=== PATIENT | female | born 1940 | race Caucasian/White ===

== ENCOUNTER 2016-11-24 09:22 | Emergency (ER) | payer OTHER, MEDICARE ==
[2016-11-24 09:31] VITALS: BP 149/75; PULSE 81; TEMP 98.3; BMI 23.0
--- NOTE | 2016-11-24 09:46 | PDOC ---
History of Present Illness <Kelli Thompson - Last Filed: 11/24/16 15:32> - General History Source: Patient Exam Limitations: No Limitations - History of Present Illness Initial Comments: 11/24/16 10:43 The patient is a 76 year old female presenting with her fellow sister, with a significant past medical history of HTN, HLD and diabetes, who presents to the emergency department with lightheadedness and elevated blood sugar. She notes that she ran out of her Levemir medication and attempted to get in contact with her PMD, who are closed due to the holidays. She states that her blood sugar levels have been up and down prior to running out of her Levemir medication. The patient denies chest pain, shortness of breath, headache and dizziness. Denies fever, chills, nausea, vomit, diarrhea and constipation. Denies dysuria, frequency, urgency and hematuria. Allergies: None Past surgical history: L. Foot, L. Knee replaced, growth removed from brain in 1994 Social history: No Alcohol, tobacco or drug use reported <George Yang - Last Filed: 11/24/16 15:50> - General Chief Complaint: Lightheaded Stated Complaint: LIGHTHEADED, HIGH SUGAR Time Seen by Provider: 11/24/16 09:38 Past History - Past Medical History Anemia: No Asthma: No Cancer: No Cardiac Disorders: No CVA: No COPD: No CHF: No Dementia: No Diabetes: Yes GI Disorders: Yes (BLOOD IN STOOL) Disorders: No HTN: Yes Hypercholesterolemia: Yes Liver Disease: No Suicide Attempt (Hx): No Seizures: No Thyroid Disease: Yes - Surgical History Abdominal Surgery: No Appendectomy: No Cardiac Surgery: No Cholecystectomy: No Neurologic Surgery: Yes (GROWTH REMOVED FROM BRAIN 1994) Orthopedic Surgery: Yes (L. Foot, L. Knee replaced) - Psycho/Social/Smoking Cessation Hx Anxiety: No Suicidal Ideation: No Smoking Status: No Smoking History: Never smoked Have you smoked in the past 12 months: No Number of Cigarettes Smoked Daily: 0 Information on smoking cessation initiated: No Hx Alcohol Use: No Drug/Substance Use Hx: No Substance Use Type: None Hx Substance Use Treatment: No <Kelli Thompson - Last Filed: 11/24/16 15:32> <George Yang - Last Filed: 11/24/16 15:50> - Past Medical History Allergies/Adverse Reactions: Allergies Allergy/AdvReac Type Severity Reaction Status Date / Time No Known Allergies Allergy Verified 11/24/16 09:31 Home Medications: Ambulatory Orders Metformin HCl [Glucophage] 1,000 mg PO DAILY 05/22/13 Pravastatin Sodium [Pravachol -] 80 mg PO HS 05/22/13 Aspirin [ASA -] 81 mg PO DAILY #0 tab.chew 05/27/13 Levothyroxine [Synthroid -] 112 mcg PO DAILY@0700 #0 tablet 05/27/13 Multivitamins [Multivit ([facility] Formul[facility])] 1 udtab PO DAILY #0 tab 05/27/13 Glimepiride [Amaryl] 2 mg PO BID 08/09/13 Insulin Aspart [Novolog] 6 unit SQ BID 08/09/13 Insulin Detemir [Levemir] 6 unit SQ HS 08/09/13 Losartan Potassium [Cozaar -] 100 mg PO DAILY 08/09/13 Ranitidine [Zantac -] 150 mg PO BID #120 tablet 08/10/13 Amlodipine Besylate [Norvasc -] 5 mg PO DAILY 05/05/15 Sodium Chloride 5% Ophth Soln [Sarina-128 (Nf)] 1 drop OU DAILY 05/05/15 Insulin Detemir [Levemir Flextouch] 16 unit SQ DAILY #1 ml 11/24/16 Review of Systems - Review of Systems Able to Perform ROS?: Yes Comments:: 11/24/16 10:42 GENERAL/CONSTITUTIONAL: No fever or chills. No weakness. HEAD, EYES, EARS, NOSE AND THROAT: No change in vision. No ear pain or discharge. No sore throat. CARDIOVASCULAR: +Lightheadedness. No chest pain or shortness of breath RESPIRATORY: No cough, wheezing, or hemoptysis. GASTROINTESTINAL: No nausea, vomiting, diarrhea or constipation. GENITOURINARY: No dysuria, frequency, or change in urination. MUSCULOSKELETAL: No joint or muscle swelling or pain. No neck or back pain. SKIN: No rash NEUROLOGIC: No headache, vertigo, loss of consciousness, or change in strength/ sensation. ENDOCRINE: No increased thirst. No abnormal weight change HEMATOLOGIC/LYMPHATIC: No anemia, easy bleeding, or history of blood clots. ALLERGIC/IMMUNOLOGIC: No hives or skin allergy. <CallieDory bauerdelvis Bell - Last Filed: 11/24/16 15:50> *Physical Exam - Vital Signs Last Vital Signs Temp Pulse Resp BP Pulse Ox 98.3 F 81 18 149/75 100 11/24/16 09:27 11/24/16 09:27 11/24/16 09:27 11/24/16 09:27 11/24/16 09:27 <Kelli Thompson - Last Filed: 11/24/16 15:32> - Vital Signs Last Vital Signs Temp Pulse Resp BP Pulse Ox 98.3 F 81 18 149/75 100 11/24/16 09:27 11/24/16 09:27 11/24/16 09:27 11/24/16 09:27 11/24/16 09:27 - Physical Exam Comments: 11/24/16 10:42 GENERAL: Awake, alert, and fully oriented, in no acute distress HEAD: No signs of trauma, normocephalic, atraumatic EYES: PERRLA, EOMI, sclera anicteric, conjunctiva clear ENT: Auricles normal inspection, hearing grossly normal, nares patent, oropharynx clear without exudates. Moist mucosa NECK: Normal ROM, supple, no lymphadenopathy, JVD, or masses LUNGS: No distress, speaks full sentences, clear to auscultation bilaterally HEART: Regular rate and rhythm, normal S1 and S2, no murmurs, rubs or gallops, peripheral pulses normal and equal bilaterally. ABDOMEN: Soft, nontender, normoactive bowel sounds. No guarding, no rebound. No masses EXTREMITIES: Normal inspection, Normal range of motion, no edema. No clubbing or cyanosis. NEUROLOGICAL: Cranial nerves II through XII grossly intact. Normal speech, normal gait, no focal sensorimotor deficits SKIN: Warm, Dry, normal turgor, no rashes or lesions noted. <KellmiriamGeorge - Last Filed: 11/24/16 15:50> ED Treatment Course - LABORATORY CBC & Chemistry Diagram: 11/24/16 10:14 11/24/16 10:14 <Kelli Thompson - Last Filed: 11/24/16 15:32> - LABORATORY CBC & Chemistry Diagram: 11/24/16 10:14 11/24/16 10:14 - ADDITIONAL ORDERS Additional order review: Laboratory Results 11/24/16 10:14 Acetone, Qual Negative L 11/24/16 10:14 RBC 4.37 MCV 93.0 MCHC 33.3 RDW 13.0 D MPV 8.8 Neutrophils % 83.4 H Lymphocytes % 8.2 D Monocytes % 7.6 Eosinophils % 0.1 D Basophils % 0.7 <George Yang - Last Filed: 11/24/16 15:50> Medical Decision Making - Medical Decision Making Case d/w Dr. 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 Currently 100 on CMP. I will refill her levemir. He requests that she follow up tomorrow or Thursday in his office to reevaluate her medication. Pt is amenable to this plan. <Kelli Thompson - Last Filed: 11/24/16 15:32> *DC/Admit/Observation/Transfer - Discharge Dispostion Admit: No <Kelli Thompson - Last Filed: 11/24/16 15:32> - Attestations Scribe Attestion: 11/24/16 10:43 Documentation prepared by George Yang, acting as medical pathologist for Kelli Thompson MD. <George Yang - Last Filed: 11/24/16 15:50> Diagnosis at time of Disposition: Medication refill, Hyperglycemia - Discharge Dispostion Disposition: HOME Condition at time of disposition: Stable - Prescriptions Prescriptions: Insulin Detemir [Levemir Flextouch] 16 unit SQ DAILY #1 ml
[2016-11-24 10:21] LABS: BASOPHIL 0.7 % (0-2.0); EOSINOPHIL 0.1 % (0-4.5); MCHC 33.3 g/dl (32.0-36.0); MEAN PLT VOLUME 8.8 fl (7.5-11.1); NEUTROPHILS 83.4 % (42.8-82.8); PLATELET COUNT 221 K/MM3 (134-434)
[2016-11-24 10:40] LABS: ACETONE SERUM NEGATIVE (NEGATIVE)
[2016-11-24 10:50] LABS: ALBUMIN 3.6 g/dl (3.4-5.0); CALCIUM 9.2 mg/dL (8.5-10.1); GLUCOSE,RANDOM 100 mg/dL (74-106)
[2016-11-24 10:53] LABS: ALK PHOS 109 U/L (45-117); ANION GAP 11 (8-16); BILIRUBIN,TOTAL 0.4 mg/dL (0.2-1.0); CO2 25 mmol/L (21-32); CREATININE 0.8 mg/dL (0.55-1.02); SGOT/AST 21 U/L (15-37); SGPT/ALT 31 U/L (12-78); TOT PROT 7.1 g/dl (6.4-8.2)
[2016-11-24 12:39] LABS: URINE APPEARANCE CLOUDY; URINE BILIRUBIN NEGATIVE (NEGATIVE); URINE BLOOD NEGATIVE (NEGATIVE); URINE COLOR DKYELLOW; URINE GLUCOSE (UA) NEGATIVE (NEGATIVE); URINE KETONE NEGATIVE (NEGATIVE); URINE LEUK ESTERASE NEGATIVE (NEGATIVE); URINE NITRITE NEGATIVE (NEGATIVE); URINE PROTEIN NEGATIVE (NEGATIVE); URINE UROBILINOGEN NEGATIVE E.U./dl (0.2-1.0)
== END 2016-11-24 13:19 | disposition home or self-care (01) ==
LOC: JER 09:22
DX: E11.65 Type 2 diabetes mellitus with hyperglycemia (principal); Z79.4 Long term (current) use of insulin; I10 Essential (primary) hypertension; E78.00 Pure hypercholesterolemia, unspecified; E03.9 Hypothyroidism, unspecified; Z76.0 Encounter for issue of repeat prescription
CPT/HCPCS: 36415; 80053; 81003; 82009; 85025; 99281-25

== ENCOUNTER 2018-09-24 15:31 | Inpatient (IN) | payer OTHER ==
[2018-09-24] MEDS ORDERED: SODIUM CHLORIDE 1,000 ML IV SCH (16:00)
--- NOTE | 2018-09-24 16:03 | PDOC ---
History of Present Illness - General Chief Complaint: Pain Stated Complaint: SENT BY PMD FOR EVALUATION ABDOMINAL PAIN Time Seen by Provider: 09/24/18 15:56 Past History - Past Medical History Allergies/Adverse Reactions: Allergies Allergy/AdvReac Type Severity Reaction Status Date / Time No Known Allergies Allergy Verified 09/24/18 15:33 Home Medications: Ambulatory Orders Pravastatin Sodium [Pravachol -] 80 mg PO HS 05/22/13 metFORMIN HCL [Glucophage] 1,000 mg PO DAILY 05/22/13 Aspirin [ASA -] 81 mg PO DAILY #0 tab.chew 05/27/13 Levothyroxine [Synthroid -] 112 mcg PO DAILY@0700 #0 tablet 05/27/13 Glimepiride [Amaryl] 2 mg PO BID 08/09/13 Losartan Potassium [Cozaar -] 100 mg PO DAILY 08/09/13 Amlodipine Besylate [Norvasc -] 5 mg PO DAILY 05/05/15 Insulin Detemir [Levemir Flextouch] 16 unit SQ DAILY #1 ml 11/24/16 Insulin Lispro [Humalog] 5 unit SQ TID 09/24/18 Metformin HCl [Metformin HCl ER] 500 mg PO DAILY 09/24/18 Anemia: No Asthma: No Cancer: No Cardiac Disorders: No CVA: No COPD: No CHF: No Dementia: No Diabetes: Yes GI Disorders: Yes (BLOOD IN STOOL) Disorders: No HTN: Yes Hypercholesterolemia: Yes Liver Disease: No Seizures: No Thyroid Disease: Yes - Surgical History Abdominal Surgery: No Appendectomy: No Cardiac Surgery: No Cholecystectomy: No Neurologic Surgery: Yes (GROWTH REMOVED FROM BRAIN 1994) Orthopedic Surgery: Yes (L. Foot, L. Knee replaced) - Suicide/Smoking/Psychosocial Hx Smoking Status: No Smoking History: Never smoked Have you smoked in the past 12 months: No Number of Cigarettes Smoked Daily: 0 Hx Alcohol Use: No Drug/Substance Use Hx: No Substance Use Type: None Hx Substance Use Treatment: No ED Treatment Course - RADIOLOGY Radiology Studies Ordered: Category Date Time Status ABDOMEN CT WITH CONTRAST* [CT] Stat CT Scan 09/24/18 15:56 Ordered *DC/Admit/Observation/Transfer - Discharge Dispostion Condition at time of disposition: Stable - Referrals - Patient Instructions - Post Discharge Activity
[2018-09-24 16:33] LABS: PH,URINE 6.5 (4.5-8); URINE APPEARANCE Clear; URINE BILIRUBIN Negative (NEGATIVE); URINE COLOR Yellow; URINE GLUCOSE (UA) 1+ (NEGATIVE); URINE KETONE Negative (NEGATIVE); URINE LEUK ESTERASE Negative (NEGATIVE); URINE NITRITE Negative (NEGATIVE); URINE PROTEIN 1+ (NEGATIVE); URINE UROBILINOGEN 0.2 (0.2-1.0)
--- NOTE | 2018-09-24 16:36 | PDOC ---
History of Present Illness - General Chief Complaint: Pain Stated Complaint: SENT BY PMD FOR EVALUATION ABDOMINAL PAIN Time Seen by Provider: 09/24/18 15:56 History Source: Patient Exam Limitations: No Limitations - History of Present Illness Initial Comments: 09/24/18 16:33 77 yo F HTN HLD hypothyroid and DM here wtih c/o left lower quadrant abd pain. n /v x 2 7 days ago, and loose stool. diffuse lower abd pain. no mod factors. has been eating and drinking less than usual. no urinary complaints. no f/c no h /o diverticulitis. saw dr joy, sent to ed for ct a/p Past History - Past Medical History Allergies/Adverse Reactions: Allergies Allergy/AdvReac Type Severity Reaction Status Date / Time No Known Allergies Allergy Verified 09/24/18 15:33 Home Medications: Ambulatory Orders Pravastatin Sodium [Pravachol -] 80 mg PO HS 05/22/13 metFORMIN HCL [Glucophage] 1,000 mg PO DAILY 05/22/13 Aspirin [ASA -] 81 mg PO DAILY #0 tab.chew 05/27/13 Levothyroxine [Synthroid -] 112 mcg PO DAILY@0700 #0 tablet 05/27/13 Losartan Potassium [Cozaar -] 100 mg PO DAILY 08/09/13 Amlodipine Besylate [Norvasc -] 5 mg PO DAILY 05/05/15 Insulin Detemir [Levemir Flextouch] 16 unit SQ DAILY #1 ml 11/24/16 Insulin Lispro [Humalog] 5 unit SQ TID 09/24/18 Metformin HCl [Metformin HCl ER] 500 mg PO DAILY 09/24/18 Propylene Glycol/Peg 400/Pf [Systane 0.3-0.4% Eye Drop] 1 each OU TID 09/26/18 Sitagliptin Phosphate [Januvia] 100 mg PO DAILY 09/26/18 Amoxicillin/Potassium Clav [Augmentin 875-125 Tablet] 1 each PO BID #20 tablet 10/01/18 Docusate Sodium [Colace -] 100 mg PO TID #90 capsule 10/01/18 Lactobacillus Acidophilus [Bacid -] 1 tab PO DAILY #30 tab 10/01/18 Melatonin 5 mg PO HS PRN #30 tab 10/01/18 Polyethylene Glycol 3350 [Miralax 119 gm Btl -] 17 gm PO BID #1 bottle 10/01/18 Anemia: No Asthma: No Cancer: No Cardiac Disorders: No CVA: No COPD: No CHF: No Dementia: No Diabetes: Yes GI Disorders: Yes (BLOOD IN STOOL) Disorders: No HTN: Yes Hypercholesterolemia: Yes Liver Disease: No Seizures: No Thyroid Disease: Yes - Surgical History Abdominal Surgery: No Appendectomy: No Cardiac Surgery: No Cholecystectomy: No Neurologic Surgery: Yes (GROWTH REMOVED FROM BRAIN 1994) Orthopedic Surgery: Yes (L. Foot, L. Knee replaced) - Suicide/Smoking/Psychosocial Hx Smoking Status: No Smoking History: Never smoked Have you smoked in the past 12 months: No Number of Cigarettes Smoked Daily: 0 Information on smoking cessation initiated: No Hx Alcohol Use: No Drug/Substance Use Hx: No Substance Use Type: None Hx Substance Use Treatment: No Review of Systems - Review of Systems Constitutional: No: Chills, Diaphoresis, Fever HEENTM: No: Blurred Vision Respiratory: No: Cough, Orthopnea Cardiac (ROS): No: Chest Pain, Edema ABD/GI: Yes: Constipated, Diarrhea : No: Burning, Dysuria, Discharge Musculoskeletal: No: Back Pain All Other Systems: Reviewed and Negative *Physical Exam - Vital Signs Last Vital Signs Temp Pulse Resp BP Pulse Ox 98.1 F 76 16 149/78 100 09/24/18 15:32 09/24/18 15:32 09/24/18 15:32 09/24/18 15:32 09/24/18 15:32 - Physical Exam Comments: 09/24/18 16:35 awake alert lungs clear bilaterally heart rr no mrg abd soft llq ttp. no rebound no guarding. ext wwp. no edema. ED Treatment Course - LABORATORY CBC & Chemistry Diagram: 09/30/18 07:37 09/30/18 07:37 Medical Decision Making - Medical Decision Making 09/24/18 16:38 differential diverticulitis, uti, renal, colitis. plan ct a/p labs ua *DC/Admit/Observation/Transfer Diagnosis at time of Disposition: Small bowel edema Diarrhea Qualifiers: Diarrhea type: unspecified type Qualified Code(s): R19.7 - Diarrhea, unspecified - Discharge Dispostion Condition at time of disposition: Stable - Prescriptions - Referrals - Patient Instructions - Post Discharge Activity
[2018-09-24 17:23] LABS: ALBUMIN 2.8 g/dl (3.5-5.0); ALK PHOS 88 U/L (32-92); ANION GAP 7 MMOL/L (8-16); BILIRUBIN,TOTAL 0.5 mg/dl (0.2-1.0); BLOOD UREA NITROGEN 13 mg/dl (7-18); CALCIUM 8.5 mg/dl (8.4-10.2); CHLORIDE 95 mmol/L (98-107); CO2 25 mmol/L (22-28); CREATININE 0.8 mg/dl (0.6-1.3); GLUCOSE,RANDOM 226 mg/dl (74-106); POTASSIUM 4.4 mmol/L (3.5-5.1); SGOT/AST 24 U/L (10-42); SGPT/ALT 20 U/L (10-40); SODIUM 127 mmol/L (136-145); TOT PROT 5.6 g/dl (6.4-8.3)
[2018-09-24 17:26] LABS: BASO % 1.5 % (0-2.0); EOS % 0.9 % (0-4.5); HEMATOCRIT 36.2 % (32.4-45.2); HEMOGLOBIN 12.1 GM/dl (10.7-15.3); LYMPH % 7.5 % (8-40); MCH 30.9 pg (25.7-33.7); MCHC 33.5 g/dl (32.0-36.0); MEAN CELL VOLUME 92.4 fl (80-96); MEAN PLT VOLUME 8.9 fl (7.5-11.1); MONO % 9.5 % (3.8-10.2); NEUT % 80.6 % (42.8-82.8); PLATELET COUNT 238 K/MM3 (134-434); RBC 3.91 M/mm3 (3.60-5.2); RDW 11.5 % (11.6-15.6); WHITE BLOOD COUNT 12.5 K/mm3 (4.0-10.8)
[2018-09-24] MEDS ORDERED: CIPROFLOXACIN 400 MG/D5W 400 MG/200 ML IVPB IVPB ONE (20:20)
[2018-09-24 20:29] LABS: URINE BACTERIA 4+ /hpf (NEGATIVE); URINE RBC 0-2 /hpf (0-3); URINE WBC 0-1 (0-5)
--- NOTE | 2018-09-24 20:56 | PDOC ---
*Physical Exam - Vital Signs Last Vital Signs Temp Pulse Resp BP Pulse Ox 98.1 F 76 16 149/78 100 09/24/18 15:32 09/24/18 15:32 09/24/18 15:32 09/24/18 15:32 09/24/18 15:32 ED Treatment Course - LABORATORY CBC & Chemistry Diagram: 09/24/18 16:50 09/24/18 16:50 - ADDITIONAL ORDERS Additional order review: Laboratory Results 09/24/18 09/24/18 09/24/18 16:50 16:50 16:50 Sodium 127 L Potassium 4.4 Chloride 95 L Carbon Dioxide 25 Anion Gap 7 L BUN 13 Creatinine 0.8 Creat Clearance w eGFR > 60 Random Glucose 226 H Lactic Acid 1.2 Calcium 8.5 Total Bilirubin 0.5 AST 24 ALT 20 Alkaline Phosphatase 88 Total Protein 5.6 L Albumin 2.8 L Lipase 217 Urine Color Urine Appearance Urine pH Ur Specific [place] Urine Protein Urine Glucose (UA) Urine Ketones Urine Blood Urine Nitrite Urine Bilirubin Urine Urobilinogen Ur Leukocyte Esterase Urine RBC Urine WBC Urine Bacteria 09/24/18 16:10 Sodium Potassium Chloride Carbon Dioxide Anion Gap BUN Creatinine Creat Clearance w eGFR Random Glucose Lactic Acid Calcium Total Bilirubin AST ALT Alkaline Phosphatase Total Protein Albumin Lipase Urine Color Yellow Urine Appearance Clear Urine pH 6.5 Ur Specific [place] 1.015 Urine Protein 1+ H Urine Glucose (UA) 1+ H Urine Ketones Negative Urine Blood Negative Urine Nitrite Negative Urine Bilirubin Negative Urine Urobilinogen 0.2 Ur Leukocyte Esterase Negative Urine RBC 0-2 Urine WBC 0-1 Urine Bacteria 4+ 09/24/18 16:50 RBC 3.91 MCV 92.4 MCHC 33.5 RDW 11.5 L MPV 8.9 Neutrophils % 80.6 Lymphocytes % 7.5 L Monocytes % 9.5 Eosinophils % 0.9 Basophils % 1.5 Medical Decision Making - Medical Decision Making 09/24/18 20:56 Asked to follow-up CAT scan results small amount of bowel edema questionable small abscess nonamenable to IR drainage given size Given abdominal discomfort with diarrhea we'll treat with Cipro Flagyl will admit hospital for further management IV fluids have been given. *DC/Admit/Observation/Transfer Diagnosis at time of Disposition: Small bowel edema Diarrhea Qualifiers: Diarrhea type: unspecified type Qualified Code(s): R19.7 - Diarrhea, unspecified - Discharge Dispostion Condition at time of disposition: Stable Decision to Admit order: Yes Decision to Admit order Date/Time: Decision to Admit Order Category Date Time Status Decision to Admit to Hospital Routine Admission 09/24/18 20:14 Active - Referrals - Patient Instructions - Post Discharge Activity
[2018-09-24 22:12] VITALS: BMI 25.0
--- NOTE | 2018-09-25 09:26 | HP ---
CHIEF COMPLAINT: Left lower quadrant pain PCP: Dr. Conteh GI: Dr. Hanna HISTORY OF PRESENT ILLNESS: 77 year-old female with a PMH significant for HTN, HLD, Type II diabetes insulin dependent, hypothyroidism, gastritis, and sigmoid diverticulosis. A week ago patient developed pain in the LLQ, nausea, and vomiting. The nausea and vomiting resolved the next day, but the LLQ pain persisted. The pain was not better or worse with food, but PO intake dropped due to discomfort. Yesterday patient went to see her PCP Dr. Conteh who referred patient to the ED. Patient denies fever, sweats, chills. Denies dysuria, frequency, urgency. Denies diarrhea. No history of abdominal surgeries. Recent Travel: No PAST MEDICAL HISTORY: Hypertension Hyperlipidemia Type II diabetes insulin dependent Hypothyroidism Gastritis Sigmoid diverticulosis PAST SURGICAL HISTORY: Brain mass resection (1994, benign) Left knee replacement (2005) Left foot arch reconstruction (2009) Right shoulder replacement (2016) Social History: Smoking: no Alcohol: no Drugs: no Family History: mother 8 days after patient's from heart problem; father killed in accident, no biological siblings Allergies No Known Allergies Allergy (Verified 09/24/18 15:33) HOME MEDICATIONS: Home Medications Medication Instructions Recorded Pravastatin Sodium [Pravachol -] 80 mg PO HS 05/22/13 metFORMIN HCL [Glucophage] 1,000 mg PO DAILY 05/22/13 Aspirin [ASA -] 81 mg PO DAILY #0 tab.chew 05/27/13 Levothyroxine [Synthroid -] 112 mcg PO DAILY@0700 #0 tablet 05/27/13 Glimepiride [Amaryl] 2 mg PO BID 08/09/13 Losartan Potassium [Cozaar -] 100 mg PO DAILY 08/09/13 Amlodipine Besylate [Norvasc -] 5 mg PO DAILY 05/05/15 Insulin Detemir [Levemir Flextouch] 16 unit SQ DAILY #1 ml 11/24/16 Insulin Lispro [Humalog] 5 unit SQ TID 09/24/18 Metformin HCl [Metformin HCl ER] 500 mg PO DAILY 09/24/18 REVIEW OF SYSTEMS CONSTITUTIONAL: +loss of appetite Absent: fever, chills, diaphoresis, generalized weakness, malaise, weight change HEENT: Absent: rhinorrhea, nasal congestion, throat pain, throat swelling, difficulty swallowing, mouth swelling, ear pain, eye pain, visual changes CARDIOVASCULAR: Absent: chest pain, syncope, palpitations, irregular heart rate, lightheadedness , peripheral edema RESPIRATORY: Absent: cough, shortness of breath, dyspnea with exertion, orthopnea, wheezing, stridor, hemoptysis GASTROINTESTINAL: +LLQ pain, nausea, vomiting Absent: abdominal distension, diarrhea, constipation, melena, hematochezia GENITOURINARY: Absent: dysuria, frequency, urgency, hesitancy, hematuria, flank pain, genital pain MUSCULOSKELETAL: Absent: myalgia, arthralgia, joint swelling, back pain, neck pain SKIN: Absent: rash, itching, pallor HEMATOLOGIC/IMMUNOLOGIC: Absent: easy bleeding, easy bruising, lymphadenopathy, frequent infections ENDOCRINE: Absent: unexplained weight gain, unexplained weight loss, heat intolerance, cold intolerance NEUROLOGIC: Absent: headache, focal weakness or paresthesias, dizziness, unsteady gait, seizure, mental status changes, bladder or bowel incontinence PSYCHIATRIC: Absent: anxiety, depression, suicidal or homicidal ideation, hallucinations. PHYSICAL EXAMINATION Vital Signs - 24 hr 09/24/18 09/24/18 09/24/18 15:32 21:00 21:10 Temperature 98.1 F 98.6 F Pulse Rate 76 Pulse Rate [ 69 Radial] Respiratory 16 18 16 Rate Blood Pressure 149/78 Blood Pressure 156/71 [Arm] O2 Sat by Pulse 100 100 98 Oximetry (%) 09/24/18 09/25/18 21:58 06:38 Temperature 98.2 F 98.0 F Pulse Rate 67 70 Pulse Rate [ Radial] Respiratory 18 18 Rate Blood Pressure 126/55 L 136/51 L Blood Pressure [Arm] O2 Sat by Pulse 100 96 Oximetry (%) GENERAL: Awake, alert, and fully oriented, in no acute distress. HEAD: Normal with no signs of trauma. EYES: Pupils equal, round and reactive to light, extraocular movements intact, sclera anicteric, conjunctiva clear. No lid lag. EARS, NOSE, THROAT: Ears normal, nares patent, oropharynx clear without exudates. Moist mucous membranes. NECK: Normal range of motion, supple without lymphadenopathy, JVD, or masses. LUNGS: Breath sounds equal, clear to auscultation bilaterally. No wheezes, and no crackles. No accessory muscle use. HEART: Regular rate and rhythm, S1 and S2 ABDOMEN: soft, not disended; mild tenderness over LLQ, no guarding, no rebound; normoactive bowel sounds UPPER EXTREMITIES: 2+ pulses, warm, well-perfused. No cyanosis. No clubbing. No peripheral edema. LOWER EXTREMITIES: 2+ pulses, warm, well-perfused. No calf tenderness. No peripheral edema. NEUROLOGICAL: Cranial nerves II-XII intact. Normal speech. PSYCHIATRIC: Cooperative. Good eye contact. Appropriate mood and affect. SKIN: Warm, dry, normal turgor Laboratory Results - last 24 hr 09/24/18 09/24/18 09/24/18 16:10 16:50 16:50 WBC 12.5 H RBC 3.91 Hgb 12.1 Hct 36.2 MCV 92.4 MCH 30.9 MCHC 33.5 RDW 11.5 L Plt Count 238 MPV 8.9 Absolute Neuts (auto) 10.1 Neutrophils % 80.6 Lymphocytes % 7.5 L Monocytes % 9.5 Eosinophils % 0.9 Basophils % 1.5 Sodium 127 L Potassium 4.4 Chloride 95 L Carbon Dioxide 25 Anion Gap 7 L BUN 13 Creatinine 0.8 Creat Clearance w eGFR > 60 Random Glucose 226 H Lactic Acid Calcium 8.5 Total Bilirubin 0.5 AST 24 ALT 20 Alkaline Phosphatase 88 Total Protein 5.6 L Albumin 2.8 L Lipase Urine Color Yellow Urine Appearance Clear Urine pH 6.5 Ur Specific [place] 1.015 Urine Protein 1+ H Urine Glucose (UA) 1+ H Urine Ketones Negative Urine Blood Negative Urine Nitrite Negative Urine Bilirubin Negative Urine Urobilinogen 0.2 Ur Leukocyte Esterase Negative Urine RBC 0-2 Urine WBC 0-1 Urine Bacteria 4+ 09/24/18 09/24/18 16:50 16:50 WBC RBC Hgb Hct MCV MCH MCHC RDW Plt Count MPV Absolute Neuts (auto) Neutrophils % Lymphocytes % Monocytes % Eosinophils % Basophils % Sodium Potassium Chloride Carbon Dioxide Anion Gap BUN Creatinine Creat Clearance w eGFR Random Glucose Lactic Acid 1.2 Calcium Total Bilirubin AST ALT Alkaline Phosphatase Total Protein Albumin Lipase 217 Urine Color Urine Appearance Urine pH Ur Specific [place] Urine Protein Urine Glucose (UA) Urine Ketones Urine Blood Urine Nitrite Urine Bilirubin Urine Urobilinogen Ur Leukocyte Esterase Urine RBC Urine WBC Urine Bacteria ASSESSMENT/PLAN: 77 year-old female with a PMH significant for HTN, HLD, Type II diabetes insulin dependent, hypothyroidism, gastritis, and sigmoid diverticulosis. Admitted for LLQ pain. LLQ pain Fluid collection, possible abscess h/o sigmoid diverticulosis --afebrile, no leukocytosis --09/24 CTAP w/contrast: focal mesenteric edema within left paramedian aspect of lower abdomen/upper pelvis with a 3.3 x 2.3cm ring-enhancing fluid collection possible abscess --consult for IR for Thursday morning to see if collection can be aspirated --continue Zosyn and metronidazole --follow up esr and crp Pancreatic duct dilitation --minimal to mild dilation of main pancreatic duct, follow up with non- emergency MRCP Hypertension --BP stable --continue amlodipine, losartan Hyperlipidemia --continue pravastatin Type II diabetes, insulin dependent --Levemir 16U qhs --Novolog sliding scale coverage Hypothyroidism --TSH elevated, patient states Dr. Conteh aware and has been adjusting meds --continue home dose levothyroxine Gastritis --protonix PO FEN Fluids: PO intake adequate Electrolytes: replete as indicated Nutrition: low sodium, diabetic DVT prophylaxis: subq lovenox Physical therapy Dispo: continues to require inpatient care. Full code. Visit type - Emergency Visit Emergency Visit: Yes ED Registration Date: 09/24/18 Care time: The patient presented to the Emergency Department on the above date and was hospitalized for further evaluation of their emergent condition. - New Patient This patient is new to me today: Yes Date on this admission: 09/26/18 - Critical Care Critical Care patient: No
[2018-09-25 09:33] LABS: EOS % 0.7 % (0-4.5); HEMATOCRIT 34.2 % (32.4-45.2); HEMOGLOBIN 11.7 GM/dl (10.7-15.3); LYMPH % 7.6 % (8-40); MCH 31.6 pg (25.7-33.7); MCHC 34.1 g/dl (32.0-36.0); MEAN CELL VOLUME 92.6 fl (80-96); MEAN PLT VOLUME 8.7 fl (7.5-11.1); MONO % 9.6 % (3.8-10.2); NEUT % 82.1 % (42.8-82.8); PLATELET COUNT 215 K/MM3 (134-434); RDW 11.6 % (11.6-15.6); WHITE BLOOD COUNT 9.8 K/mm3 (4.0-10.8)
[2018-09-25] MEDS: PIPERACILLIN/TAZOB 3.375 GM 3.375 GM in DEXTROSE 5%-WATER - 50 ML IVPB SCH ×2 (15:00→18:13)
[2018-09-25] MEDS: amLODIPine BESYLATE 5 MG TABLET (FP) PO SCH (15:10)
[2018-09-25 15:33] LABS: BLOOD UREA NITROGEN 9 mg/dL (7-18); GLUCOSE,RANDOM 213 mg/dL (74-106)
[2018-09-25 15:34] LABS: ANION GAP 13 MMOL/L (8-16); CHLORIDE 97 mmol/L (98-107); CO2 22 mmol/L (21-32); CREATININE 0.7 mg/dL (0.55-1.3); POTASSIUM 4.7 mmol/L (3.5-5.1); SODIUM 132 mmol/L (136-145)
[2018-09-25 15:35] LABS: CALCIUM 7.8 mg/dL (8.5-10.1); PHOSPHOROUS 2.6 mg/dL (2.5-4.9)
[2018-09-25 15:36] LABS: ALBUMIN 2.4 g/dl (3.4-5.0); ALK PHOS 89 U/L (45-117); BILIRUBIN,TOTAL 0.5 mg/dL (0.2-1); MAGNESIUM 1.8 mg/dL (1.8-2.4); SGOT/AST 13 U/L (15-37); SGPT/ALT 20 U/L (13-61); TOT PROT 5.3 g/dl (6.4-8.2)
--- NOTE | 2018-09-25 17:31 | CON.ID ---
Consult Consult Specialty:: infectious disease Referred by:: hospitalist Reason for Consultation:: possible LLQ abscess - History of Present Illness Chief Complaint: LLQ pain for one week History of Present Illness: last thursday she had vomiting and LLQ pain, pain has persisted, eating poorly no fevers saw her PMD yesterday and had ct scan with question of LLQ 3 cm abscess- no history of abdominal surgery no history of diverticulitis GI - dr sue - History Source History Provided By: Patient Limitations to Obtaining History: No Limitations - Past Medical History ...: No Endocrine: Yes: Diabetes Mellitus, Hypothyroidism - Past Surgical History Additional Surgical History: left TKR, Right shoulder replacement. 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 Place of : [facility] History of Recent Travel: No Home Medications - Allergies Allergies/Adverse Reactions: Allergies Allergy/AdvReac Type Severity Reaction Status Date / Time No Known Allergies Allergy Verified 09/24/18 15:33 - Home Medications Home Medications: Ambulatory Orders Pravastatin Sodium [Pravachol -] 80 mg PO HS 05/22/13 metFORMIN HCL [Glucophage] 1,000 mg PO DAILY 05/22/13 Aspirin [ASA -] 81 mg PO DAILY #0 tab.chew 05/27/13 Levothyroxine [Synthroid -] 112 mcg PO DAILY@0700 #0 tablet 05/27/13 Glimepiride [Amaryl] 2 mg PO BID 08/09/13 Losartan Potassium [Cozaar -] 100 mg PO DAILY 08/09/13 Amlodipine Besylate [Norvasc -] 5 mg PO DAILY 05/05/15 Insulin Detemir [Levemir Flextouch] 16 unit SQ DAILY #1 ml 11/24/16 Insulin Lispro [Humalog] 5 unit SQ TID 09/24/18 Metformin HCl [Metformin HCl ER] 500 mg PO DAILY 09/24/18 Family Disease History - Family Disease History Family History: Denies Review of Systems - Review of Systems Constitutional: reports: Loss of Appetite. denies: Fever, Lethargy Eyes: reports: No Symptoms HENT: reports: No Symptoms Neck: reports: No Symptoms Cardiovascular: reports: No Symptoms Respiratory: reports: No Symptoms Gastrointestinal: reports: Abdominal Pain, Vomiting Genitourinary: reports: No Symptoms Physical Exam Vital Signs: Vital Signs Temperature 99.0 F 09/25/18 14:00 Pulse Rate 60 09/25/18 14:00 Respiratory Rate 17 09/25/18 14:00 Blood Pressure 137/61 09/25/18 14:00 O2 Sat by Pulse Oximetry (%) 100 09/25/18 14:00 Constitutional: Yes: No Distress, Calm Eyes: Yes: Conjunctiva Clear HENT: Yes: Atraumatic, Normocephalic Neck: Yes: Supple Cardiovascular: Yes: Regular Rate and Rhythm Respiratory: Yes: Regular, CTA Bilaterally Gastrointestinal: Yes: Normal Bowel Sounds, Soft, Tenderness (LLQ) ...Rectal Exam: Yes: Deferred Extremities: Yes: WNL Edema: No Psychiatric: Yes: Alert, Oriented Labs: CBC, BMP 09/25/18 07:00 09/25/18 07:00 Imaging - Results Cat Scan: Report Reviewed Problem List - Problems (1) Intra-abdominal abscess Code(s): K65.1 - PERITONEAL ABSCESS (2) Diabetes Code(s): E11.9 - TYPE 2 DIABETES MELLITUS WITHOUT COMPLICATIONS Assessment/Plan continue zosyn ?IR drainage esr/crp further reccd to follow d/w hospitalist
[2018-09-25] MEDS: INSULIN (NOVOLOG) ASPART 100 UNITS/ML 10ML VIAL SQ SCH ×2 (18:13→22:30)
[2018-09-25] MEDS ORDERED: INSULIN DETEMIR 16 UNIT SQ SCH (22:00)
[2018-09-25] MEDS: INSULIN (LEVEMIR) 100 UNITS/ML UNITS SQ SCH (22:30)
[2018-09-26] MEDS: PIPERACILLIN/TAZOB 3.375 GM 3.375 GM in DEXTROSE 5%-WATER - 50 ML IVPB SCH ×3 (01:06→17:21)
[2018-09-26] MEDS: INSULIN (NOVOLOG) ASPART 100 UNITS/ML 10ML VIAL SQ SCH ×4 (06:37→21:31)
[2018-09-26 08:40] LABS: EOS % 1.9 % (0-4.5); HEMATOCRIT 33.4 % (32.4-45.2); HEMOGLOBIN 11.7 GM/dl (10.7-15.3); LYMPH % 10.2 % (8-40); MCH 32.3 pg (25.7-33.7); MEAN CELL VOLUME 92.4 fl (80-96); MEAN PLT VOLUME 8.4 fl (7.5-11.1); MONO % 11.6 % (3.8-10.2); NEUT % 76.3 % (42.8-82.8); PLATELET COUNT 236 K/MM3 (134-434); RBC 3.61 M/mm3 (3.60-5.2); RDW 11.3 % (11.6-15.6); WHITE BLOOD COUNT 9.8 K/mm3 (4.0-10.8)
[2018-09-26 09:15] LABS: ALBUMIN 2.4 g/dl (3.5-5.0); ALK PHOS 74 U/L (32-92); ANION GAP 10 MMOL/L (8-16); BILIRUBIN,TOTAL 0.5 mg/dl (0.2-1.0); BLOOD UREA NITROGEN 11 mg/dl (7-18); CALCIUM 8.2 mg/dl (8.4-10.2); CHLORIDE 95 mmol/L (98-107); CO2 27 mmol/L (22-28); CREATININE 0.7 mg/dl (0.6-1.3); GLUCOSE,RANDOM 42 mg/dl (74-106); SGOT/AST 17 U/L (10-42); SGPT/ALT 17 U/L (10-40); SODIUM 132 mmol/L (136-145); TOT PROT 4.8 g/dl (6.4-8.3)
[2018-09-26 09:38] LABS: ACTIVATED PTT 24.8 SECONDS (25.2-36.5)
[2018-09-26 09:43] LABS: INR 1.08 (0.82-1.09); PROTHROMBIN TIME (PATIENT) 12.1 SEC (10.2-13.0)
[2018-09-26] MEDS: ASPIRIN 81 MG CHEWABLE TABLETS PO SCH (09:50)
[2018-09-26] MEDS: amLODIPine BESYLATE 5 MG TABLET (FP) PO SCH (09:50)
[2018-09-26] MEDS: ENOXAPARIN NA (PORCINE) 40 MG/0.4 ML DISP.SYRIN SQ SCH (09:51)
[2018-09-26 10:14] LABS: MAGNESIUM 1.9 mg/dL (1.8-2.4)
[2018-09-26 11:02] LABS: LIPASE 145 U/L (73-393)
--- NOTE | 2018-09-26 11:38 | PN ---
Physical Exam: SUBJECTIVE: Patient seen and examined at bedside. Pain is 3/10, intermittent, dull. No exacerbating and alleviating factors. OBJECTIVE: Vital Signs Period Temp Pulse Resp BP Sys/Bacon Pulse Ox Last 24 Hr 98.7 F-99.1 F 60-68 16-17 111-137/41-61 98-100 GENERAL: Awake, alert, and fully oriented, in no acute distress. LUNGS: Breath sounds equal, clear to auscultation bilaterally. No wheezes, and no crackles. No accessory muscle use. HEART: Regular rate and rhythm, S1 and S2 ABDOMEN: soft, not disended; mild tenderness over LLQ, no guarding, no rebound; normoactive bowel sounds UPPER EXTREMITIES: 2+ pulses, warm, well-perfused. No cyanosis. No clubbing. No peripheral edema. LOWER EXTREMITIES: 2+ pulses, warm, well-perfused. No calf tenderness. No peripheral edema. NEUROLOGICAL: Cranial nerves II-XII intact. Normal speech. PSYCHIATRIC: Cooperative. Good eye contact. Appropriate mood and affect. SKIN: Warm, dry, normal turgor Laboratory Results - last 24 hr 09/25/18 09/25/18 09/26/18 07:00 21:45 05:35 WBC 9.8 RBC 3.61 Hgb 11.7 Hct 33.4 MCV 92.4 MCH 32.3 MCHC 35.0 RDW 11.3 L Plt Count 236 MPV 8.4 Absolute Neuts (auto) 7.5 Neutrophils % 76.3 Lymphocytes % 10.2 Monocytes % 11.6 H Eosinophils % 1.9 Basophils % 0.0 PT with INR INR PTT (Actin FS) Sodium 132 L Potassium 4.7 Chloride 97 L Carbon Dioxide 22 Anion Gap 13 BUN 9 Creatinine 0.7 Creat Clearance w eGFR > 60 POC Glucometer 298 Random Glucose 213 H Calcium 7.8 L Phosphorus 2.6 Magnesium 1.8 Total Bilirubin 0.5 AST 13 L ALT 20 Alkaline Phosphatase 89 Total Protein 5.3 L Albumin 2.4 L Lipase 09/26/18 09/26/18 09/26/18 06:32 07:00 07:00 WBC RBC Hgb Hct MCV MCH MCHC RDW Plt Count MPV Absolute Neuts (auto) Neutrophils % Lymphocytes % Monocytes % Eosinophils % Basophils % PT with INR 12.1 INR 1.08 PTT (Actin FS) 24.8 L Sodium 132 L Potassium 4.0 Chloride 95 L Carbon Dioxide 27 Anion Gap 10 BUN 11 Creatinine 0.7 Creat Clearance w eGFR > 60 POC Glucometer 53 Random Glucose 42 L* D Calcium 8.2 L Phosphorus Magnesium 1.9 Total Bilirubin 0.5 AST 17 D ALT 17 Alkaline Phosphatase 74 D Total Protein 4.8 L Albumin 2.4 L Lipase 145 09/26/18 09:40 WBC RBC Hgb Hct MCV MCH MCHC RDW Plt Count MPV Absolute Neuts (auto) Neutrophils % Lymphocytes % Monocytes % Eosinophils % Basophils % PT with INR INR PTT (Actin FS) Sodium Potassium Chloride Carbon Dioxide Anion Gap BUN Creatinine Creat Clearance w eGFR POC Glucometer 325 Random Glucose Calcium Phosphorus Magnesium Total Bilirubin AST ALT Alkaline Phosphatase Total Protein Albumin Lipase Current Medications Generic Name Dose Route Start Last Admin Trade Name Freq PRN Reason Stop Dose Admin Amlodipine Besylate 5 mg 09/25/18 14:45 09/26/18 09:50 Norvasc - PO 5 mg DAILY DEEJAY Administration Aspirin 81 mg 09/26/18 10:00 09/26/18 09:50 Asa - PO 81 mg DAILY DEEJAY Administration Atorvastatin Calcium 20 mg 09/26/18 22:00 Lipitor - PO HS DEEJAY Enoxaparin Sodium 40 mg 09/26/18 10:00 09/26/18 09:51 Lovenox - SQ 40 mg DAILY DEEJAY Administration Piperacillin Sod/Tazobactam 50 mls @ 100 mls/hr 09/25/18 15:45 09/26/18 17:21 Sod 3.375 gm/ Dextrose IVPB 100 mls/hr Q8H-IV DEEJAY Administration Protocol Insulin Aspart 0 units 09/25/18 16:30 09/26/18 17:21 Novolog Vial SQ 2 units ACHS DEEJAY Administration Protocol Insulin Detemir 16 units 09/25/18 22:00 09/25/18 22:30 Levemir Vial SQ 16 units HS DEEJAY Administration Levothyroxine Sodium 112 mcg 09/27/18 07:00 Synthroid - PO DAILY@0700 DEEJAY Losartan Potassium 100 mg 09/27/18 10:00 Cozaar - PO DAILY DEEJAY Non-Formulary Medication 1 each 09/26/18 22:00 Propylene Glycol/Peg 400/Pf [Systane 0.3-0.4% Eye Drop] OU TID DEEJAY ASSESSMENT/PLAN: 77 year-old female with a PMH significant for HTN, HLD, Type II diabetes insulin dependent, hypothyroidism, gastritis, and sigmoid diverticulosis. Admitted for LLQ pain. LLQ pain Fluid collection, possible abscess h/o sigmoid diverticulosis --afebrile, no leukocytosis --09/24 CTAP w/contrast: focal mesenteric edema within left paramedian aspect of lower abdomen/upper pelvis with a 3.3 x 2.3cm ring-enhancing fluid collection possible abscess --consult for IR for Thursday to see if collection can be aspirated --continue Zosyn and metronidazole --follow up esr and crp Pancreatic duct dilitation --minimal to mild dilation of main pancreatic duct, follow up with non- emergency MRCP Hypertension --BP stable --continue amlodipine, losartan Hyperlipidemia --continue pravastatin Type II diabetes, insulin dependent --Levemir 16U qhs --Novolog sliding scale coverage Hypothyroidism --TSH elevated, patient states Dr. Conteh aware and has been adjusting meds --continue home dose levothyroxine Gastritis --protonix PO FEN Fluids: PO intake adequate Electrolytes: replete as indicated Nutrition: low sodium, diabetic DVT prophylaxis: subq lovenox Physical therapy Dispo: continues to require inpatient care. Full code. Visit type - Emergency Visit Emergency Visit: Yes ED Registration Date: 09/24/18 Care time: The patient presented to the Emergency Department on the above date and was hospitalized for further evaluation of their emergent condition. - New Patient This patient is new to me today: No - Critical Care Critical Care patient: No
[2018-09-26] MEDS: INSULIN (LEVEMIR) 100 UNITS/ML UNITS SQ SCH (21:31)
[2018-09-26] MEDS: ATORVASTATIN CA 20 MG TABLET (FP) PO SCH (21:31)
[2018-09-27] MEDS: PIPERACILLIN/TAZOB 3.375 GM 3.375 GM in DEXTROSE 5%-WATER - 50 ML IVPB SCH ×3 (01:43→17:01)
[2018-09-27] MEDS: LEVOTHYROXINE NA 112 MCG TABLET (FP) PO SCH (06:49)
[2018-09-27] MEDS: INSULIN (NOVOLOG) ASPART 100 UNITS/ML 10ML VIAL SQ SCH ×4 (06:50→21:36)
--- NOTE | 2018-09-27 08:00 | PN ---
Physical Exam: SUBJECTIVE: Patient seen and examined, tolerating regular diet, reports minimal abdominal pain. OBJECTIVE: Patient is a 77 year-old female with a PMH significant for HTN, HLD, Type II diabetes insulin dependent, hypothyroidism, gastritis, and sigmoid diverticulosis. patient was admitted from the emergency department for mesenteric abscess. Vital Signs Period Temp Pulse Resp BP Sys/Bacon Pulse Ox Last 24 Hr 97.9 F-99.0 F 54-66 16-18 121-139/52-57 96-98 GENERAL: The patient is awake, alert, and fully oriented, in no acute distress. HEAD: Normal with no signs of trauma. EYES: PERRL, extraocular movements intact, sclera anicteric, conjunctiva clear. No ptosis. ENT: Ears normal, nares patent, oropharynx clear without exudates, moist mucous membranes. NECK: Trachea midline, full range of motion, supple. LUNGS: Breath sounds equal, clear to auscultation bilaterally, no wheezes, no crackles, no accessory muscle use. HEART: Regular rate and rhythm, S1, S2 without murmur, rub or gallop. ABDOMEN: Soft, tenderness upon deep palpation to the Left lower quadrant, nondistended, normoactive bowel sounds, no guarding, no rebound, no hepatosplenomegaly, no masses. EXTREMITIES: 2+ pulses, warm, well-perfused, no edema. NEUROLOGICAL: Cranial nerves II through XII grossly intact. Normal speech, gait not observed. PSYCH: Normal mood, normal affect. SKIN: Warm, dry, normal turgor, no rashes or lesions noted Laboratory Results - last 24 hr CBC WBC 9.7 K/mm3 (4.0-10.8) 09/27/18 07:30 RBC 3.80 M/mm3 (3.60-5.2) 09/27/18 07:30 Hgb 11.8 GM/dl (10.7-15.3) 09/27/18 07:30 Hct 35.4 % (32.4-45.2) 09/27/18 07:30 MCV 93.1 fl (80-96) 09/27/18 07:30 MCH 31.2 pg (25.7-33.7) 09/27/18 07:30 MCHC 33.5 g/dl (32.0-36.0) 09/27/18 07:30 RDW 11.6 % (11.6-15.6) 09/27/18 07:30 Plt Count 275 K/MM3 (134-434) 09/27/18 07:30 MPV 8.2 fl (7.5-11.1) 09/27/18 07:30 Absolute Neuts (auto) 8.1 K/mm3 09/27/18 07:30 Neutrophils % 82.9 % (42.8-82.8) H 09/27/18 07:30 Lymphocytes % 9.5 % (8-40) 09/27/18 07:30 Monocytes % 6.3 % (3.8-10.2) 09/27/18 07:30 Eosinophils % 1.1 % (0-4.5) 09/27/18 07:30 Basophils % 0.2 % (0-2.0) 09/27/18 07:30 CMP Sodium 131 mmol/L (136-145) L 09/27/18 07:30 Potassium 4.3 mmol/L (3.5-5.1) 09/27/18 07:30 Chloride 96 mmol/L (98-107) L 09/27/18 07:30 Carbon Dioxide 27 mmol/L (22-28) 09/27/18 07:30 Anion Gap 8 MMOL/L (8-16) 09/27/18 07:30 BUN 10 mg/dl (7-18) 09/27/18 07:30 Creatinine 0.8 mg/dl (0.6-1.3) 09/27/18 07:30 Creat Clearance w eGFR > 60 (>60) 09/27/18 07:30 POC Glucometer 168 UNITS (80-120) 09/27/18 11:52 Random Glucose 240 mg/dl (74-106) H D 09/27/18 07:30 Lactic Acid 1.2 mmol/L (0.4-2.0) 09/24/18 16:50 Calcium 8.5 mg/dl (8.4-10.2) 09/27/18 07:30 Phosphorus 2.6 mg/dL (2.5-4.9) 09/25/18 07:00 Magnesium 1.8 mg/dL (1.8-2.4) 09/27/18 07:30 Total Bilirubin 0.2 mg/dl (0.2-1.0) 09/27/18 07:30 AST 19 U/L (10-42) 09/27/18 07:30 ALT 19 U/L (10-40) 09/27/18 07:30 Alkaline Phosphatase 74 U/L (32-92) 09/27/18 07:30 C-Reactive Protein 6.6 MG/DL (0.00-0.3) H 09/26/18 07:00 Total Protein 5.3 g/dl (6.4-8.3) L 09/27/18 07:30 Albumin 2.5 g/dl (3.5-5.0) L 09/27/18 07:30 Lipase 145 U/L (73-393) 09/26/18 07:00 TSH 8.09 uIU/ml (0.358-3.74) H 09/25/18 07:00 Active Medications Generic Name Dose Route Start Last Admin Trade Name Freq PRN Reason Stop Dose Admin Amlodipine Besylate 5 mg 09/25/18 14:45 09/26/18 09:50 Norvasc - PO 5 mg DAILY DEEJAY Administration Aspirin 81 mg 09/26/18 10:00 09/26/18 09:50 Asa - PO 81 mg DAILY DEEJAY Administration Atorvastatin Calcium 20 mg 09/26/18 22:00 09/26/18 21:31 Lipitor - PO 20 mg HS DEEJAY Administration Enoxaparin Sodium 40 mg 09/26/18 10:00 09/26/18 09:51 Lovenox - SQ 40 mg DAILY DEEJAY Administration Piperacillin Sod/Tazobactam 50 mls @ 100 mls/hr 09/25/18 15:45 09/27/18 01:43 Sod 3.375 gm/ Dextrose IVPB 100 mls/hr Q8H-IV DEEJAY Administration Protocol Insulin Aspart 0 units 09/25/18 16:30 09/27/18 06:50 Novolog Vial SQ 6 units ACHS DEEJAY Administration Protocol Insulin Detemir 16 units 09/25/18 22:00 09/26/18 21:31 Levemir Vial SQ 16 units HS DEEJAY Administration Levothyroxine Sodium 112 mcg 09/27/18 07:00 09/27/18 06:49 Synthroid - PO 112 mcg DAILY@0700 DEEJAY Administration Losartan Potassium 100 mg 09/27/18 10:00 Cozaar - PO DAILY [facility] Non-Formulary Medication 1 each 09/26/18 22:00 Propylene Glycol/Peg 400/Pf [Systane 0.3-0.4% Eye Drop] OU TID [facility] Pantoprazole Sodium 40 mg 09/27/18 10:00 Protonix - PO DAILY [facility] Microbiology 09/24/18 16:10 Urine - Urine Clean Catch Urine Culture - Final Escherichia Coli 09/25/18 15:05 Blood - Peripheral Venous Blood Culture - Preliminary NO GROWTH OBTAINED AFTER 24 HOURS, INCUBATION TO CONTINUE FOR 4 DAYS. 09/25/18 14:50 Blood - Peripheral Venous Blood Culture - Preliminary NO GROWTH OBTAINED AFTER 24 HOURS, INCUBATION TO CONTINUE FOR [address] abdomen/pelvis with contrast: mesenteric edema, 3.3 x 2.3 possibly representing an abscess minimal mild dilation of the main pancreatic duct within the body ASSESSMENT/PLAN: 1) GI Fluid collection, possible abscess h/o sigmoid diverticulosis - afebrile, no leukocytosis, discussed with interventional radiologist, Dr Talbert, abscess can not be drained advised to continue iv abx - will continue zosyn day 3 - appreciate GI input (Jonah) Pancreatic duct dilitation --minimal to mild dilation of main pancreatic duct, follow up with non- emergency MRCP 2) cardiovascularu Hypertension - b/p at goal, continue amlodipine, losartan Hyperlipidemia - continue pravastatin 3) endo Type II diabetes, insulin dependent -Levemir 16U in am (as per home med regimen) -Novolog sliding scale coverage Hypothyroidism - TSH elevated, patient states Dr. Conteh aware and has been adjusting meds, pending t4 - will continue home dose levothyroxine 4) uti - urine culture +ecoli, continue zosyn FEN Fluids: PO intake adequate Electrolytes: hyponatremia, improved with iv hydration, correct serum sodium today 134 Nutrition: low sodium, diabetic DVT prophylaxis: subq lovenox Physical therapy Dispo: continues to require inpatient care. Full code. Visit type - Emergency Visit Emergency Visit: Yes ED Registration Date: 09/24/18 Care time: The patient presented to the Emergency Department on the above date and was hospitalized for further evaluation of their emergent condition. - New Patient This patient is new to me today: No - Critical Care Critical Care patient: No - Discharge Referral Referred to [facility] Med P.C.: No
[2018-09-27 08:09] LABS: BASO % 0.2 % (0-2.0); EOS % 1.1 % (0-4.5); HEMATOCRIT 35.4 % (32.4-45.2); HEMOGLOBIN 11.8 GM/dl (10.7-15.3); LYMPH % 9.5 % (8-40); MCH 31.2 pg (25.7-33.7); MCHC 33.5 g/dl (32.0-36.0); MEAN CELL VOLUME 93.1 fl (80-96); MEAN PLT VOLUME 8.2 fl (7.5-11.1); MONO % 6.3 % (3.8-10.2); NEUT % 82.9 % (42.8-82.8); PLATELET COUNT 275 K/MM3 (134-434); RDW 11.6 % (11.6-15.6); WHITE BLOOD COUNT 9.7 K/mm3 (4.0-10.8)
[2018-09-27 08:18] LABS: ALBUMIN 2.5 g/dl (3.5-5.0); ALK PHOS 74 U/L (32-92); ANION GAP 8 MMOL/L (8-16); BILIRUBIN,TOTAL 0.2 mg/dl (0.2-1.0); BLOOD UREA NITROGEN 10 mg/dl (7-18); CALCIUM 8.5 mg/dl (8.4-10.2); CHLORIDE 96 mmol/L (98-107); CO2 27 mmol/L (22-28); CREATININE 0.8 mg/dl (0.6-1.3); GLUCOSE,RANDOM 240 mg/dl (74-106); MAGNESIUM 1.8 mg/dL (1.8-2.4); POTASSIUM 4.3 mmol/L (3.5-5.1); SGOT/AST 19 U/L (10-42); SGPT/ALT 19 U/L (10-40); SODIUM 131 mmol/L (136-145); TOT PROT 5.3 g/dl (6.4-8.3)
[2018-09-27] MEDS ORDERED: INSULIN (LEVEMIR) 100 UNITS/ML UNITS SQ SCH (08:45)
[2018-09-27] MEDS: ASPIRIN 81 MG CHEWABLE TABLETS PO SCH (09:13)
[2018-09-27] MEDS: LOSARTAN POTASSIUM 50 MG TABLET (FP) PO SCH (09:13)
[2018-09-27] MEDS: amLODIPine BESYLATE 5 MG TABLET (FP) PO SCH (09:13)
[2018-09-27] MEDS: PANTOPRAZOLE 40 MG TABLET (FP) PO SCH (09:13)
[2018-09-27] MEDS: ENOXAPARIN NA (PORCINE) 40 MG/0.4 ML DISP.SYRIN SQ SCH (09:15)
--- NOTE | 2018-09-27 11:54 | PN ---
Progress Note, Physician History of Present Illness: C/O abdominal discomfort- points to across abdomen No N/V Tolerated solid diet for breakfast Reports small BM No rectal bleeding Denies fever/ chills WBC WNL BC no growth - Current Medication List Current Medications: Active Medications Amlodipine Besylate (Norvasc -) 5 mg PO DAILY [facility] Last Admin: 09/27/18 09:13 Dose: 5 mg Aspirin (Asa -) 81 mg PO DAILY [facility] Last Admin: 09/27/18 09:13 Dose: 81 mg Atorvastatin Calcium (Lipitor -) 20 mg PO HS [facility] Last Admin: 09/26/18 21:31 Dose: 20 mg Enoxaparin Sodium (Lovenox -) 40 mg SQ DAILY [facility] Last Admin: 09/27/18 09:15 Dose: 40 mg Piperacillin Sod/Tazobactam (Sod 3.375 gm/ Dextrose) 50 mls @ 100 mls/hr IVPB Q8H-IV [facility]; Protocol Last Admin: 09/27/18 09:12 Dose: 100 mls/hr Insulin Aspart (Novolog Vial) 0 units SQ ACHS [facility]; Protocol Last Admin: 09/27/18 06:50 Dose: 6 units Insulin Detemir (Levemir Vial) 16 units SQ DAILY [facility] Last Admin: 09/27/18 09:14 Dose: 16 units Levothyroxine Sodium (Synthroid -) 112 mcg PO DAILY@0700 [facility] Last Admin: 09/27/18 06:49 Dose: 112 mcg Losartan Potassium (Cozaar -) 100 mg PO DAILY [facility] Last Admin: 09/27/18 09:13 Dose: 100 mg Non-Formulary Medication (Propylene Glycol/Peg 400/Pf [Systane 0.3-0.4% Eye Drop ]) 1 each OU TID [facility] Pantoprazole Sodium (Protonix -) 40 mg PO DAILY [facility] Last Admin: 09/27/18 09:13 Dose: 40 mg - Objective Vital Signs: Vital Signs Temperature 98.0 F 09/27/18 09:00 Pulse Rate 59 L 09/27/18 09:00 Respiratory Rate 17 09/27/18 09:00 Blood Pressure 106/59 L 09/27/18 09:00 O2 Sat by Pulse Oximetry (%) 98 09/27/18 05:21 Constitutional: Yes: No Distress Eyes: Yes: Conjunctiva Clear Cardiovascular: Yes: Regular Rate and Rhythm, S1, S2 Respiratory: Yes: CTA Bilaterally Gastrointestinal: Yes: Normal Bowel Sounds, Soft. No: Tenderness Edema: No Labs: CBC, BMP 09/27/18 07:30 09/27/18 07:30 INR, PTT INR 1.08 (0.82-1.09) 09/26/18 07:00 Assessment/Plan Mesenteric edema, possible abscess ? etiology Cultures pending Continue empiric coverage GI pathogens with zosyn Advise GI/IR consults
[2018-09-27] MEDS ORDERED: INSULIN (NOVOLOG) ASPART 100 UNITS/ML 10ML VIAL ONE ×2 (11:57→16:45)
--- NOTE | 2018-09-27 13:03 | PN ---
Progress Note (short form) - Note Progress Note: Patient seen and consult dictated. Patient with likely intraabdominal infection - mesenteric inflammation on left side (per CT scan) along with ?abscess and c/o abdominal pain. Feels better on IV antibiotics with improving WBC and no fever or chills. Agree with plans per ID Tolerating PO No GII intervention at this time
[2018-09-27] MEDS ORDERED: PT OWN MED DRAWER 7, Y5N ONE (16:45)
--- NOTE | 2018-09-27 21:15 | CONS ---
DATE OF CONSULTATION: 09/27/2018 Asked to evaluate this 77-year-old female with a possible abscess in the left side of the abdomen. The patient is a 77-year-old female with a past history of type 2 diabetes mellitus, hypothyroidism, hypertension, and hypercholesterolemia. She presented to her primary care doctor with some abdominal pain and vomiting, with some diminishment in her appetite. She was sent for a CAT scan of the abdomen which showed a possible 3-cm abscess in the left mesentery, left lower quadrant, and the patient was admitted to the hospital. At the time of admission, she had an elevated white count of 12.5 with normal chemistries. She was seen by Infectious Disease and started empirically on antibiotics intravenously. The patient has remained afebrile during the hospital course and states that her abdominal discomfort has stabilized and improved somewhat. She is currently seen sitting in a chair comfortably, eating her lunch. Currently, she is afebrile with stable blood pressure and heart rate. Her blood cultures are negative to date. The patient denies any prior similar history in the past. She has had colonoscopies previous and believes the last one may have been 2-[address] Hanna. She is not aware of being told of diverticulitis or diverticulosis. Currently, she is on antibiotics for the mesenteric edema, possible abscess/infection. Her most recent white blood count has improved to 9.7. PHYSICAL EXAMINATION: General: The patient is a well-developed, well-nourished female, alert, in no obvious discomfort. She does describe some discomfort when she presses deeply in the left lower quadrant. Lungs: Clear. Cardiac: Regular rate and rhythm. Abdomen: Soft, flat, and with minimal discomfort to deep palpation in the left mid and lower abdomen but no rebound, guarding, or mass. Patient with probable infection in the mesentery in the left side of the abdomen and possible small abscess which is apparently not amenable to drainage by Interventional Radiology. Patient on Zosyn per Infectious Disease and clinically improving. Would continue current regimen per ID, and we will follow clinically as needed. No indication for any GI endoscopy or further interventions at the present time. LUCRETIA KIM M.D. [id number]
[2018-09-27] MEDS: ATORVASTATIN CA 20 MG TABLET (FP) PO SCH (21:36)
[2018-09-28] MEDS: PIPERACILLIN/TAZOB 3.375 GM 3.375 GM in DEXTROSE 5%-WATER - 50 ML IVPB SCH ×3 (01:19→17:13)
[2018-09-28] MEDS: ARTIFICIAL TEARS (POLYVINYL ALCOHOL) OPTH DROPS OU SCH ×4 (03:08→21:18)
[2018-09-28] MEDS: LEVOTHYROXINE NA 112 MCG TABLET (FP) PO SCH (06:37)
[2018-09-28] MEDS: DOCUSATE SODIUM 100 MG CAPSULE (FP) PO SCH ×3 (06:37→21:18)
[2018-09-28] MEDS ORDERED: INSULIN (LEVEMIR) 100 UNITS/ML UNITS SQ SCH (07:00)
[2018-09-28] MEDS: INSULIN (NOVOLOG) ASPART 100 UNITS/ML 10ML VIAL SQ SCH ×4 (07:06→21:18)
[2018-09-28 08:45] LABS: BASO % 0.4 % (0-2.0); MEAN PLT VOLUME 7.7 fl (7.5-11.1); WHITE BLOOD COUNT 9.6 K/mm3 (4.0-10.8)
[2018-09-28 08:51] LABS: EOS % 1.9 % (0-4.5); HEMATOCRIT 35.8 % (32.4-45.2); HEMOGLOBIN 12.5 GM/dl (10.7-15.3); LYMPH % 9.4 % (8-40); MCHC 34.8 g/dl (32.0-36.0); MONO % 7.4 % (3.8-10.2); NEUT % 80.9 % (42.8-82.8); PLATELET COUNT 309 K/MM3 (134-434); RBC 3.89 M/mm3 (3.60-5.2); RDW 11.6 % (11.6-15.6)
[2018-09-28 09:05] LABS: ALBUMIN 2.7 g/dl (3.5-5.0); ALK PHOS 79 U/L (32-92); ANION GAP 6 MMOL/L (8-16); BILIRUBIN,TOTAL 0.3 mg/dl (0.2-1.0); BLOOD UREA NITROGEN 10 mg/dl (7-18); CALCIUM 8.4 mg/dl (8.4-10.2); CHLORIDE 95 mmol/L (98-107); CO2 27 mmol/L (22-28); CREATININE 0.8 mg/dl (0.6-1.3); GLUCOSE,RANDOM 214 mg/dl (74-106); MAGNESIUM 1.6 mg/dL (1.8-2.4); PHOSPHOROUS 2.4 mg/dl (2.5-4.6); POTASSIUM 4.1 mmol/L (3.5-5.1); SGOT/AST 24 U/L (10-42); SGPT/ALT 18 U/L (10-40); SODIUM 128 mmol/L (136-145); TOT PROT 5.6 g/dl (6.4-8.3)
[2018-09-28] MEDS: ASPIRIN 81 MG CHEWABLE TABLETS PO SCH (09:12)
[2018-09-28] MEDS: LOSARTAN POTASSIUM 50 MG TABLET (FP) PO SCH (09:13)
[2018-09-28] MEDS: PANTOPRAZOLE 40 MG TABLET (FP) PO SCH (09:13)
[2018-09-28] MEDS: ENOXAPARIN NA (PORCINE) 40 MG/0.4 ML DISP.SYRIN SQ SCH (09:13)
[2018-09-28] MEDS: POLYETHYLENE GLYCOL 3350 119 GM BTL PO SCH ×2 (09:13→21:18)
[2018-09-28] MEDS: amLODIPine BESYLATE 5 MG TABLET (FP) PO SCH (09:13)
--- NOTE | 2018-09-28 15:04 | PN ---
Physical Exam: SUBJECTIVE: Patient seen and examined; no events reported overnight. Abdominal pain controlled. Na worse today; fell to 128 from 131. Checking further labs. Hemodynamically stable and afebrile. Continue to monitor on the floor. Appreciate input from specialty services OBJECTIVE: Vital Signs Period Temp Pulse Resp BP Sys/Bacon Pulse Ox Last 24 Hr 97.8 F-98.6 F 57-70 16-18 119-129/44-51 97-100 GENERAL: The patient is awake, alert, and fully oriented, in no acute distress. HEAD: Normal with no signs of trauma. EYES: PERRL, extraocular movements intact, sclera anicteric, conjunctiva clear. No ptosis. ENT: Ears normal, nares patent, oropharynx clear without exudates, moist mucous membranes. NECK: Trachea midline, full range of motion, supple. LUNGS: Breath sounds equal, clear to auscultation bilaterally, no wheezes, no crackles, no accessory muscle use. HEART: Regular rate and rhythm, S1, S2 without murmur, rub or gallop. ABDOMEN: Soft, nontender, nondistended, normoactive bowel sounds, no guarding, no rebound, no hepatosplenomegaly, no masses. EXTREMITIES: 2+ pulses, warm, well-perfused, no edema. NEUROLOGICAL: Cranial nerves II through XII grossly intact. Normal speech, gait not observed. PSYCH: Normal mood, normal affect. SKIN: Warm, dry, normal turgor, no rashes or lesions noted Laboratory Results - last 24 hr 09/27/18 09/27/18 09/28/18 15:53 21:32 06:32 WBC RBC Hgb Hct MCV MCH MCHC RDW Plt Count MPV Absolute Neuts (auto) Neutrophils % Lymphocytes % Monocytes % Eosinophils % Basophils % Sodium Potassium Chloride Carbon Dioxide Anion Gap BUN Creatinine Creat Clearance w eGFR POC Glucometer 281 239 241 Random Glucose Calcium Phosphorus Magnesium Total Bilirubin AST ALT Alkaline Phosphatase Total Protein Albumin 09/28/18 09/28/18 08:40 08:40 WBC 9.6 RBC 3.89 Hgb 12.5 Hct 35.8 MCV 92.0 MCH 32.0 MCHC 34.8 RDW 11.6 Plt Count 309 MPV 7.7 Absolute Neuts (auto) 7.8 Neutrophils % 80.9 Lymphocytes % 9.4 Monocytes % 7.4 Eosinophils % 1.9 Basophils % 0.4 Sodium 128 L Potassium 4.1 Chloride 95 L Carbon Dioxide 27 Anion Gap 6 L BUN 10 Creatinine 0.8 Creat Clearance w eGFR > 60 POC Glucometer Random Glucose 214 H Calcium 8.4 Phosphorus 2.4 L Magnesium 1.6 L Total Bilirubin 0.3 AST 24 D ALT 18 Alkaline Phosphatase 79 Total Protein 5.6 L Albumin 2.7 L Active Medications Generic Name Dose Route Start Last Admin Trade Name Freq PRN Reason Stop Dose Admin Amlodipine Besylate 5 mg 09/25/18 14:45 09/28/18 09:13 Norvasc - PO 5 mg DAILY DEEJAY Administration Artificial Tears 1 drop 09/26/18 22:00 09/28/18 06:38 Artificial Tears OU 1 drop TID DEEJAY Administration Aspirin 81 mg 09/26/18 10:00 09/28/18 09:12 Asa - PO 81 mg DAILY DEEJAY Administration Atorvastatin Calcium 20 mg 09/26/18 22:00 09/27/18 21:36 Lipitor - PO 20 mg HS DEEJAY Administration Docusate Sodium 100 mg 09/28/18 06:00 09/28/18 06:37 Colace - PO 100 mg TID DEEJAY Administration Enoxaparin Sodium 40 mg 09/26/18 10:00 09/28/18 09:13 Lovenox - SQ 40 mg DAILY DEEJAY Administration Piperacillin Sod/Tazobactam 50 mls @ 100 mls/hr 09/25/18 15:45 09/28/18 09:13 Sod 3.375 gm/ Dextrose IVPB 100 mls/hr Q8H-IV DEEJAY Administration Protocol Insulin Aspart 0 units 09/25/18 16:30 09/28/18 07:06 Novolog Vial SQ 4 units ACHS DEEJAY Administration Protocol Insulin Detemir 16 units 09/28/18 07:00 09/28/18 07:04 Levemir Vial SQ 16 units ACBK DEEJAY Administration Levothyroxine Sodium 112 mcg 09/27/18 07:00 09/28/18 06:37 Synthroid - PO 112 mcg DAILY@0700 DEEJAY Administration Losartan Potassium 100 mg 09/27/18 10:00 09/28/18 09:13 Cozaar - PO 100 mg DAILY DEEJAY Administration Pantoprazole Sodium 40 mg 09/27/18 10:00 09/28/18 09:13 Protonix - PO 40 mg DAILY DEEJAY Administration Polyethylene Glycol 17 gm 09/28/18 10:00 09/28/18 09:13 Miralax (For Daily Use) - PO 17 gm BID DEEJAY Administration ASSESSMENT/PLAN: Mrs. Guillen is a 77 y/o female presenting to the hospital found to have a possible abdominal abscess; she is doing well and remains hemodynamically stable and afebrile on Zosyn day 4. This isn't amiable to drainage per IR; per sgy no role for GI. They continue to follow. Appreciate specialst support; continue to monitor 1) Abdominal Abscess -imaging and prior reports reviewed -ID following; Zosyn day #4; afebrile without any new white count. -Continue to monitor for fevers, monitor CBC. -Check ESR/CRP in AM 2) Pancreatic Ductal Dilation (main duct) -Needs non-emergency MRCP once acute issues resolve; consider GI referral upon DC 3) IDDM -Increasing basal for better glycemic control (has been in 200s) 4) HTN -Continue current meds; acceptable control 5) Acute Hyponatremia -Checking Urine and serum osm, lytes -Asymptomatic, monitor BMP in PM tonight and treat when clinical picture becomes more clear. 6) E Coli + with suspect UA -Covered by zosyn empirically based on Sn on UA obtained on admit day -Monitor for resolution; no urinary sx. 7) HLD -Continue statin, followup OP Full Code Visit type - Emergency Visit Emergency Visit: No - New Patient This patient is new to me today: Yes Date on this admission: 09/28/18 - Critical Care Critical Care patient: No
[2018-09-28] MEDS ORDERED: MAGNESIUM 4GM/H20 - 4 GM/100 ML IVPB IVPB ONE (16:59)
[2018-09-28] MEDS ORDERED: MAGNESIUM SULF 50% (8.12 MEQ/2 ML-1 GM VIAL) ONE (17:15)
[2018-09-28] MEDS ORDERED: PT OWN MED DRAWER 7, Y5N ONE ×2 (17:19→21:15)
[2018-09-28] MEDS ORDERED: INSULIN (NOVOLOG) ASPART 100 UNITS/ML 10ML VIAL ONE (21:14)
[2018-09-28] MEDS: ATORVASTATIN CA 20 MG TABLET (FP) PO SCH (21:18)
[2018-09-29] MEDS: PIPERACILLIN/TAZOB 3.375 GM 3.375 GM/50 ML BAG IVPB SCH ×3 (01:37→17:12)
[2018-09-29 02:34] LABS: ANION GAP 7 MMOL/L (8-16); CALCIUM 8.4 mg/dL (8.5-10.1); CHLORIDE 100 mmol/L (98-107); CO2 29 mmol/L (21-32); CREATININE 0.8 mg/dL (0.55-1.3); POTASSIUM 4.3 mmol/L (3.5-5.1); SODIUM 136 mmol/L (136-145)
[2018-09-29 02:47] LABS: BLOOD UREA NITROGEN 13 mg/dL (7-18)
[2018-09-29 02:48] LABS: GLUCOSE,RANDOM 49 mg/dL (74-106)
[2018-09-29] MEDS ORDERED: PT OWN MED DRAWER 7, Y5N ONE ×2 (06:47→15:02)
[2018-09-29] MEDS: ARTIFICIAL TEARS (POLYVINYL ALCOHOL) OPTH DROPS OU SCH ×5 (06:54→21:31)
[2018-09-29] MEDS: DOCUSATE SODIUM 100 MG CAPSULE (FP) PO SCH ×3 (06:54→21:32)
[2018-09-29] MEDS: LEVOTHYROXINE NA 112 MCG TABLET (FP) PO SCH (07:48)
[2018-09-29] MEDS: INSULIN (LEVEMIR) 100 UNITS/ML UNITS SQ SCH (07:53)
[2018-09-29] MEDS: INSULIN (NOVOLOG) ASPART 100 UNITS/ML 10ML VIAL SQ SCH ×4 (07:54→21:32)
[2018-09-29 08:19] LABS: BASO % 0.4 % (0-2.0); EOS % 1.6 % (0-4.5); HEMATOCRIT 38.8 % (32.4-45.2); HEMOGLOBIN 12.8 GM/dl (10.7-15.3); LYMPH % 11.3 % (8-40); MCH 30.7 pg (25.7-33.7); MCHC 33.1 g/dl (32.0-36.0); MEAN CELL VOLUME 92.9 fl (80-96); MEAN PLT VOLUME 8.3 fl (7.5-11.1); MONO % 6.7 % (3.8-10.2); PLATELET COUNT 347 K/MM3 (134-434); RBC 4.18 M/mm3 (3.60-5.2); RDW 11.6 % (11.6-15.6); WHITE BLOOD COUNT 9.3 K/mm3 (4.0-10.8)
[2018-09-29 08:27] LABS: ANION GAP 8 MMOL/L (8-16); BLOOD UREA NITROGEN 13 mg/dl (7-18); CALCIUM 8.7 mg/dl (8.4-10.2); CHLORIDE 96 mmol/L (98-107); CO2 27 mmol/L (22-28); CREATININE 0.9 mg/dl (0.6-1.3); POTASSIUM 4.7 mmol/L (3.5-5.1); SODIUM 131 mmol/L (136-145)
[2018-09-29 08:44] LABS: GLUCOSE,RANDOM 309 mg/dl (74-106)
[2018-09-29] MEDS: ASPIRIN 81 MG CHEWABLE TABLETS PO SCH (09:57)
[2018-09-29] MEDS: POLYETHYLENE GLYCOL 3350 119 GM BTL PO SCH ×2 (09:58→21:32)
[2018-09-29] MEDS: ENOXAPARIN NA (PORCINE) 40 MG/0.4 ML DISP.SYRIN SQ SCH (09:58)
[2018-09-29] MEDS: LOSARTAN POTASSIUM 50 MG TABLET (FP) PO SCH (09:58)
[2018-09-29] MEDS: amLODIPine BESYLATE 5 MG TABLET (FP) PO SCH (09:59)
[2018-09-29] MEDS: PANTOPRAZOLE 40 MG TABLET (FP) PO SCH (10:01)
--- NOTE | 2018-09-29 11:03 | PN ---
Physical Exam: SUBJECTIVE: Patient seen and examined, reports feeling constipated,small pellet size stools as per patient, does report an improvement of abdominal pain OBJECTIVE: Vital Signs Period Temp Pulse Resp BP Sys/Bacon Pulse Ox Last 24 Hr 98.1 F-98.6 F 55-71 16-18 115-124/48-60 97-100 GENERAL: The patient is awake, alert, and fully oriented, in no acute distress. HEAD: Normal with no signs of trauma. EYES: PERRL, extraocular movements intact, sclera anicteric, conjunctiva clear. No ptosis. ENT: Ears normal, nares patent, oropharynx clear without exudates, moist mucous membranes. NECK: Trachea midline, full range of motion, supple. LUNGS: Breath sounds equal, clear to auscultation bilaterally, no wheezes, no crackles, no accessory muscle use. HEART: Regular rate and rhythm, S1, S2 without murmur, rub or gallop. ABDOMEN: Soft, nontender, nondistended, normoactive bowel sounds, no guarding, no rebound, no hepatosplenomegaly, no masses. EXTREMITIES: 2+ pulses, warm, well-perfused, no edema. NEUROLOGICAL: Cranial nerves II through XII grossly intact. Normal speech, gait not observed. PSYCH: Normal mood, normal affect. SKIN: Warm, dry, normal turgor, no rashes or lesions noted Laboratory Results - last 24 hr 09/28/18 09/28/18 09/28/18 15:40 15:40 16:42 WBC RBC Hgb Hct MCV MCH MCHC RDW Plt Count MPV Absolute Neuts (auto) Neutrophils % Lymphocytes % Monocytes % Eosinophils % Basophils % Sodium Potassium Chloride Carbon Dioxide Anion Gap BUN Creatinine Creat Clearance w eGFR POC Glucometer 309 Random Glucose Serum Osmolality 288 Calcium C-Reactive Protein 2.3 H Urine Osmolality Ur Random Sodium 09/28/18 09/28/18 09/29/18 20:00 21:00 01:20 WBC RBC Hgb Hct MCV MCH MCHC RDW Plt Count MPV Absolute Neuts (auto) Neutrophils % Lymphocytes % Monocytes % Eosinophils % Basophils % Sodium 136 Potassium 4.3 Chloride 100 Carbon Dioxide 29 Anion Gap 7 L BUN 13 Creatinine 0.8 Creat Clearance w eGFR > 60 POC Glucometer 358 Random Glucose 49 L* Serum Osmolality Calcium 8.4 L C-Reactive Protein Urine Osmolality 546 Ur Random Sodium 21 L 09/29/18 09/29/18 09/29/18 02:37 06:17 07:15 WBC 9.3 RBC 4.18 Hgb 12.8 Hct 38.8 MCV 92.9 MCH 30.7 MCHC 33.1 RDW 11.6 Plt Count 347 MPV 8.3 Absolute Neuts (auto) 7.6 Neutrophils % 80.0 Lymphocytes % 11.3 Monocytes % 6.7 Eosinophils % 1.6 Basophils % 0.4 Sodium Potassium Chloride Carbon Dioxide Anion Gap BUN Creatinine Creat Clearance w eGFR POC Glucometer 80 296 Random Glucose Serum Osmolality Calcium C-Reactive Protein Urine Osmolality Ur Random Sodium 09/29/18 07:15 WBC RBC Hgb Hct MCV MCH MCHC RDW Plt Count MPV Absolute Neuts (auto) Neutrophils % Lymphocytes % Monocytes % Eosinophils % Basophils % Sodium 131 L Potassium 4.7 Chloride 96 L Carbon Dioxide 27 Anion Gap 8 BUN 13 Creatinine 0.9 Creat Clearance w eGFR > 60 POC Glucometer Random Glucose 309 H* D Serum Osmolality Calcium 8.7 C-Reactive Protein Urine Osmolality Ur Random Sodium Active Medications Generic Name Dose Route Start Last Admin Trade Name Samuel PRN Reason Stop Dose Admin Amlodipine Besylate 5 mg 09/25/18 14:45 09/29/18 09:59 Norvasc - PO 5 mg DAILY DEEJAY Administration Artificial Tears 1 drop 09/26/18 22:00 09/29/18 10:45 Artificial Tears OU Not Given TID DEEJAY Aspirin 81 mg 09/26/18 10:00 09/29/18 09:57 Asa - PO 81 mg DAILY DEEJAY Administration Atorvastatin Calcium 20 mg 09/26/18 22:00 09/28/18 21:18 Lipitor - PO 20 mg HS DEEJAY Administration Docusate Sodium 100 mg 09/28/18 06:00 09/29/18 06:54 Colace - PO 100 mg TID DEEJAY Administration Enoxaparin Sodium 40 mg 09/26/18 10:00 09/29/18 09:58 Lovenox - SQ 40 mg DAILY DEEJAY Administration Piperacillin Sod/Tazobactam Sod 3.375 gm in 50 mls @ 100 mls/hr 09/29/18 02: 00 09/29/18 09:57 Zosyn 3.375gm Ivpb (Pre-Docked) IVPB 100 mls/hr Q8H-IV DEEJAY Administration Protocol Insulin Aspart 0 units 09/25/18 16:30 09/29/18 07:54 Novolog Vial SQ 6 units ACHS DEEJAY Administration Protocol Insulin Detemir 18 units 09/29/18 07:00 09/29/18 07:53 Levemir Vial SQ 18 units ACBK DEEJAY Administration Levothyroxine Sodium 112 mcg 09/27/18 07:00 09/29/18 07:48 Synthroid - PO 112 mcg DAILY@0700 DEEJAY Administration Losartan Potassium 100 mg 09/27/18 10:00 09/29/18 09:58 Cozaar - PO 100 mg DAILY DEEJAY Administration Pantoprazole Sodium 40 mg 09/27/18 10:00 09/29/18 10:01 Protonix - PO 40 mg DAILY DEEJAY Administration Polyethylene Glycol 17 gm 09/28/18 10:00 09/29/18 09:58 Miralax (For Daily Use) - PO 17 gm BID DEEJAY Administration Microbiology 09/25/18 15:05 Blood - Peripheral Venous Blood Culture - Preliminary NO GROWTH OBTAINED AFTER 72 HOURS, INCUBATION TO CONTINUE FOR 2 DAYS. 09/25/18 14:50 Blood - Peripheral Venous Blood Culture - Preliminary NO GROWTH OBTAINED AFTER 72 HOURS, INCUBATION TO CONTINUE FOR 2 DAYS. 09/24/18 16:10 Urine - Urine Clean Catch Urine Culture - Final Escherichia Coli ASSESSMENT/PLAN: Sr Lorna Guillen is a 77 y/o female, admitted from the emergency department for possible abdominal abscess. 1) abdominal abscess - reviewed with IR, Dr Talbert, abscess are small unable to drain, will repeat ct abd/pelvis with Iv/PO contrast scheduled for tomm morning -ID following; Zosyn day #5; afebrile without any new white count. -Continue to monitor for fevers, monitor CBC. 2) Pancreatic Ductal Dilation (main duct) -Needs non-emergency MRCP once acute issues resolve; consider GI referral upon DC 3) IDDM - continue novolog SS and levermir, will restart Januvia 4) HTN -Continue current meds; acceptable control 5) Acute Hyponatremia - serum sodium corrected in setting of hyperglycemia 136, close monitoring 6) E Coli + with suspect UA -Covered by zosyn empirically based on Sn on UA obtained on admit day -Monitor for resolution; no urinary sx. 7) HLD -Continue statin, followup OP Full Code Visit type - Emergency Visit Emergency Visit: Yes ED Registration Date: 09/24/18 Care time: The patient presented to the Emergency Department on the above date and was hospitalized for further evaluation of their emergent condition. - New Patient This patient is new to me today: No - Critical Care Critical Care patient: No - Discharge Referral Referred to [facility] No
[2018-09-29 11:23] LABS: ERYTHROCYTE SEDIMENTATION RATE 95 mm/hr (0-30)
--- NOTE | 2018-09-29 11:35 | PN ---
Progress Note, Physician History of Present Illness: C/O abdominal discomfort- points to L abdomen No N/V Tolerated solid diet Reports no BM Denies fever/ chills WBC WNL BC no growth - Current Medication List Current Medications: Active Medications Amlodipine Besylate (Norvasc -) 5 mg PO DAILY [facility] Last Admin: 09/29/18 09:59 Dose: 5 mg Artificial Tears (Artificial Tears) 1 drop OU TID [facility] Last Admin: 09/29/18 10:45 Dose: Not Given Aspirin (Asa -) 81 mg PO DAILY [facility] Last Admin: 09/29/18 09:57 Dose: 81 mg Atorvastatin Calcium (Lipitor -) 20 mg PO HS [facility] Last Admin: 09/28/18 21:18 Dose: 20 mg Docusate Sodium (Colace -) 100 mg PO TID [facility] Last Admin: 09/29/18 06:54 Dose: 100 mg Enoxaparin Sodium (Lovenox -) 40 mg SQ DAILY [facility] Last Admin: 09/29/18 09:58 Dose: 40 mg Piperacillin Sod/Tazobactam Sod (Zosyn 3.375gm Ivpb (Pre-Docked)) 3.375 gm in 50 mls @ 100 mls/hr IVPB Q8H-IV [facility]; Protocol Last Admin: 09/29/18 09:57 Dose: 100 mls/hr Insulin Aspart (Novolog Vial) 0 units SQ ACHS [facility]; Protocol Last Admin: 09/29/18 07:54 Dose: 6 units Insulin Detemir (Levemir Vial) 18 units SQ ACBK [facility] Last Admin: 09/29/18 07:53 Dose: 18 units Levothyroxine Sodium (Synthroid -) 112 mcg PO DAILY@0700 [facility] Last Admin: 09/29/18 07:48 Dose: 112 mcg Losartan Potassium (Cozaar -) 100 mg PO DAILY [facility] Last Admin: 09/29/18 09:58 Dose: 100 mg Pantoprazole Sodium (Protonix -) 40 mg PO DAILY [facility] Last Admin: 09/29/18 10:01 Dose: 40 mg Polyethylene Glycol (Miralax (For Daily Use) -) 17 gm PO BID [facility] Last Admin: 09/29/18 09:58 Dose: 17 gm Sodium Phosphate (Fleet Adult Rectal Enema -) 133 ml NM ONCE ONE Stop: 09/29/18 11:17 - Objective Vital Signs: Vital Signs Temperature 98.2 F 09/29/18 09:53 Pulse Rate 67 09/29/18 09:53 Respiratory Rate 18 09/29/18 09:53 Blood Pressure 121/60 09/29/18 09:53 O2 Sat by Pulse Oximetry (%) 97 09/29/18 09:00 Constitutional: Yes: No Distress Eyes: Yes: Conjunctiva Clear Cardiovascular: Yes: Regular Rate and Rhythm, S1, S2 Respiratory: Yes: CTA Bilaterally Gastrointestinal: Yes: Normal Bowel Sounds, Soft, Tenderness, Other (mild L paraumbilical tenderness) Edema: No Labs: CBC, BMP 09/29/18 07:15 09/29/18 07:15 INR, PTT INR 1.08 (0.82-1.09) 09/26/18 07:00 Assessment/Plan Mesenteric edema, possible abscess ? etiology Continue empiric coverage GI pathogens with zosyn
[2018-09-29] MEDS ORDERED: INSULIN (NOVOLOG) ASPART 100 UNITS/ML 10ML VIAL ONE (11:41)
[2018-09-29] MEDS ORDERED: SODIUM PHOSPHATE/NA BIPHOS 133 ML ENEMA PR ONE (12:00)
[2018-09-29] MEDS ORDERED: MELATONIN 5 MG TABLETS PO PRN (13:55)
[2018-09-29] MEDS: LACTOBACILLUS ACIDOPHILUS 1 TABLET PO SCH (15:06)
[2018-09-29] MEDS: ATORVASTATIN CA 20 MG TABLET (FP) PO SCH (21:31)
[2018-09-30] MEDS: PIPERACILLIN/TAZOB 3.375 GM 3.375 GM/50 ML BAG IVPB SCH ×2 (01:37→10:10)
[2018-09-30] MEDS: ARTIFICIAL TEARS (POLYVINYL ALCOHOL) OPTH DROPS OU SCH ×3 (06:35→21:50)
[2018-09-30] MEDS: sitaGLIPtin PHOSPHATE 50 MG TABLET PO SCH (06:35)
[2018-09-30] MEDS: LEVOTHYROXINE NA 112 MCG TABLET (FP) PO SCH (06:35)
[2018-09-30] MEDS: DOCUSATE SODIUM 100 MG CAPSULE (FP) PO SCH ×3 (06:35→21:50)
[2018-09-30] MEDS ORDERED: PT OWN MED DRAWER 7, Y5N ONE ×3 (06:43→20:59)
[2018-09-30] MEDS: INSULIN (NOVOLOG) ASPART 100 UNITS/ML 10ML VIAL SQ SCH ×3 (06:48→16:38)
[2018-09-30 08:07] LABS: BASO % 0.6 % (0-2.0); EOS % 2.4 % (0-4.5); HEMATOCRIT 33.5 % (32.4-45.2); HEMOGLOBIN 11.6 GM/dl (10.7-15.3); LYMPH % 11.8 % (8-40); MCH 32.4 pg (25.7-33.7); MCHC 34.7 g/dl (32.0-36.0); MEAN CELL VOLUME 93.3 fl (80-96); MEAN PLT VOLUME 7.9 fl (7.5-11.1); MONO % 7.6 % (3.8-10.2); NEUT % 77.6 % (42.8-82.8); PLATELET COUNT 266 K/MM3 (134-434); RBC 3.59 M/mm3 (3.60-5.2); RDW 11.5 % (11.6-15.6); WHITE BLOOD COUNT 6.9 K/mm3 (4.0-10.8)
[2018-09-30 08:16] LABS: ANION GAP 5 MMOL/L (8-16); BLOOD UREA NITROGEN 11 mg/dl (7-18); CALCIUM 8.1 mg/dl (8.4-10.2); CHLORIDE 101 mmol/L (98-107); CO2 26 mmol/L (22-28); CREATININE 0.9 mg/dl (0.6-1.3); GLUCOSE,RANDOM 189 mg/dl (74-106); MAGNESIUM 1.9 mg/dL (1.8-2.4); PHOSPHOROUS 3.2 mg/dl (2.5-4.6); POTASSIUM 4.4 mmol/L (3.5-5.1); SODIUM 132 mmol/L (136-145)
[2018-09-30] MEDS: INSULIN (LEVEMIR) 100 UNITS/ML UNITS SQ SCH (08:24)
[2018-09-30] MEDS: ASPIRIN 81 MG CHEWABLE TABLETS PO SCH (10:10)
[2018-09-30] MEDS: amLODIPine BESYLATE 5 MG TABLET (FP) PO SCH (10:10)
[2018-09-30] MEDS: ENOXAPARIN NA (PORCINE) 40 MG/0.4 ML DISP.SYRIN SQ SCH (10:10)
[2018-09-30] MEDS: LACTOBACILLUS ACIDOPHILUS 1 TABLET PO SCH (10:10)
[2018-09-30] MEDS: POLYETHYLENE GLYCOL 3350 119 GM BTL PO SCH ×2 (10:10→21:50)
[2018-09-30] MEDS: LOSARTAN POTASSIUM 50 MG TABLET (FP) PO SCH (10:10)
[2018-09-30] MEDS: PANTOPRAZOLE 40 MG TABLET (FP) PO SCH (10:10)
--- NOTE | 2018-09-30 12:39 | PN ---
Progress Note, Physician History of Present Illness: OOB in chair C/O L sided abdominal discomfort but improved No N/V Tolerating solid diet Reports + loose BM yesterday Denies fever/ chills WBC WNL BC no growth - Current Medication List Current Medications: Active Medications Amlodipine Besylate (Norvasc -) 5 mg PO DAILY [facility] Last Admin: 09/30/18 10:10 Dose: 5 mg Artificial Tears (Artificial Tears) 1 drop OU TID [facility] Last Admin: 09/30/18 06:35 Dose: 1 drop Aspirin (Asa -) 81 mg PO DAILY [facility] Last Admin: 09/30/18 10:10 Dose: 81 mg Atorvastatin Calcium (Lipitor -) 20 mg PO HS [facility] Last Admin: 09/29/18 21:31 Dose: 20 mg Docusate Sodium (Colace -) 100 mg PO TID [facility] Last Admin: 09/30/18 06:35 Dose: Not Given Enoxaparin Sodium (Lovenox -) 40 mg SQ DAILY [facility] Last Admin: 09/30/18 10:10 Dose: 40 mg Piperacillin Sod/Tazobactam (Sod 3.375 gm/ Sodium Chloride) 50 mls @ 100 mls/ hr IVPB Q8H-IV [facility]; Protocol Insulin Aspart (Novolog Vial) 0 units SQ [facility]; Protocol Last Admin: 09/30/18 12:00 Dose: 2 units Insulin Detemir (Levemir Vial) 18 units SQ BK [facility] Last Admin: 09/30/18 08:24 Dose: Not Given Lactobacillus Acidophilus (Bacid -) 1 tab PO DAILY [facility] Last Admin: 09/30/18 10:10 Dose: 1 tab Levothyroxine Sodium (Synthroid -) 112 mcg PO DAILY@0700 [facility] Last Admin: 09/30/18 06:35 Dose: 112 mcg Losartan Potassium (Cozaar -) 100 mg PO DAILY [facility] Last Admin: 09/30/18 10:10 Dose: 100 mg Melatonin (Melatonin) 5 mg PO HS PRN PRN Reason: INSOMNIA Pantoprazole Sodium (Protonix -) 40 mg PO DAILY [facility] Last Admin: 09/30/18 10:10 Dose: 40 mg Polyethylene Glycol (Miralax (For Daily Use) -) 17 gm PO BID [facility] Last Admin: 09/30/18 10:10 Dose: 17 gm Sitagliptin Phosphate (Januvia -) 100 mg PO ACBK [facility] Last Admin: 09/30/18 06:35 Dose: 100 mg - Objective Vital Signs: Vital Signs Temperature 97.5 F L 09/30/18 10:00 Pulse Rate 56 L 09/30/18 10:00 Respiratory Rate 17 09/30/18 10:00 Blood Pressure 165/71 09/30/18 10:00 O2 Sat by Pulse Oximetry (%) 100 09/30/18 10:00 Constitutional: Yes: No Distress Cardiovascular: Yes: Regular Rate and Rhythm, S1, S2 Respiratory: Yes: CTA Bilaterally Gastrointestinal: Yes: Normal Bowel Sounds, Soft, Tenderness (+ L sided abdominal tenderness) Edema: No Labs: CBC, BMP 09/30/18 07:37 09/30/18 07:37 INR, PTT INR 1.08 (0.82-1.09) 09/26/18 07:00 Assessment/Plan Mesenteric edema, possible abscess ? etiology Follow up CT unchanged after approx 1w empiric antibiotic tx Now with ? new perinephric collection Not sure if this is a GI or process Advise surgical evaluation ? MRI
--- NOTE | 2018-09-30 12:51 | PN ---
Physical Exam: SUBJECTIVE: Patient seen and examined, patient reports feeling well, denies abdominal pain, had large bowel movement last evening. OBJECTIVE:Patient is a 77 year-old female with a PMH significant for HTN, HLD, Type II diabetes insulin dependent, hypothyroidism, gastritis, and sigmoid diverticulosis. patient was admitted from the emergency department for mesenteric abscess. Vital Signs Period Temp Pulse Resp BP Sys/Bacon Pulse Ox Last 24 Hr 97.5 F-98.2 F 56-69 16-18 121-165/48-71 99-100 GENERAL: The patient is awake, alert, and fully oriented, in no acute distress. HEAD: Normal with no signs of trauma. EYES: PERRL, extraocular movements intact, sclera anicteric, conjunctiva clear. No ptosis. ENT: Ears normal, nares patent, oropharynx clear without exudates, moist mucous membranes. NECK: Trachea midline, full range of motion, supple. LUNGS: Breath sounds equal, clear to auscultation bilaterally, no wheezes, no crackles, no accessory muscle use. HEART: Regular rate and rhythm, S1, S2 without murmur, rub or gallop. ABDOMEN: Soft, nontender, nondistended, normoactive bowel sounds, no guarding, no rebound, no hepatosplenomegaly, no masses. EXTREMITIES: 2+ pulses, warm, well-perfused, no edema. NEUROLOGICAL: Cranial nerves II through XII grossly intact. Normal speech, gait not observed. PSYCH: Normal mood, normal affect. SKIN: Warm, dry, normal turgor, no rashes or lesions noted Laboratory Results - last 24 hr 09/29/18 09/29/18 09/30/18 16:21 21:25 06:37 WBC RBC Hgb Hct MCV MCH MCHC RDW Plt Count MPV Absolute Neuts (auto) Neutrophils % Lymphocytes % Monocytes % Eosinophils % Basophils % Sodium Potassium Chloride Carbon Dioxide Anion Gap BUN Creatinine Creat Clearance w eGFR POC Glucometer 96 237 140 Random Glucose Calcium Phosphorus Magnesium 09/30/18 09/30/18 09/30/18 07:37 07:37 11:40 WBC 6.9 RBC 3.59 L Hgb 11.6 Hct 33.5 MCV 93.3 MCH 32.4 MCHC 34.7 RDW 11.5 L Plt Count 266 MPV 7.9 Absolute Neuts (auto) 5.4 Neutrophils % 77.6 Lymphocytes % 11.8 Monocytes % 7.6 Eosinophils % 2.4 Basophils % 0.6 Sodium 132 L Potassium 4.4 Chloride 101 Carbon Dioxide 26 Anion Gap 5 L BUN 11 Creatinine 0.9 Creat Clearance w eGFR > 60 POC Glucometer 177 Random Glucose 189 H D Calcium 8.1 L Phosphorus 3.2 D Magnesium 1.9 Active Medications Generic Name Dose Route Start Last Admin Trade Name Freq PRN Reason Stop Dose Admin Amlodipine Besylate 5 mg 09/25/18 14:45 09/30/18 10:10 Norvasc - PO 5 mg DAILY [facility] Administration Artificial Tears 1 drop 09/26/18 22:00 09/30/18 06:35 Artificial Tears OU 1 drop TID [facility] Administration Aspirin 81 mg 09/26/18 10:00 09/30/18 10:10 Asa - PO 81 mg DAILY [facility] Administration Atorvastatin Calcium 20 mg 09/26/18 22:00 09/29/18 21:31 Lipitor - PO 20 mg HS [facility] Administration Docusate Sodium 100 mg 09/28/18 06:00 09/30/18 06:35 Colace - PO Not Given TID [facility] Enoxaparin Sodium 40 mg 09/26/18 10:00 09/30/18 10:10 Lovenox - SQ 40 mg DAILY [facility] Administration Piperacillin Sod/Tazobactam 50 mls @ 100 mls/hr 09/30/18 18:00 Sod 3.375 gm/ Sodium Chloride IVPB Q8H-IV [facility] Protocol Insulin Aspart 0 units 09/25/18 16:30 09/30/18 12:00 Novolog Vial SQ 2 units ACHS [facility] Administration Protocol Insulin Detemir 18 units 09/29/18 07:00 09/30/18 08:24 Levemir Vial SQ Not Given ACBK [facility] Lactobacillus Acidophilus 1 tab 09/29/18 14:00 09/30/18 10:10 Bacid - PO 1 tab DAILY [facility] Administration Levothyroxine Sodium 112 mcg 09/27/18 07:00 09/30/18 06:35 Synthroid - PO 112 mcg DAILY@0700 [facility] Administration Losartan Potassium 100 mg 09/27/18 10:00 09/30/18 10:10 Cozaar - PO 100 mg DAILY [facility] Administration Melatonin 5 mg 09/29/18 13:55 Melatonin PO HS PRN INSOMNIA Pantoprazole Sodium 40 mg 09/27/18 10:00 09/30/18 10:10 Protonix - PO 40 mg DAILY [facility] Administration Polyethylene Glycol 17 gm 09/28/18 10:00 09/30/18 10:10 Miralax (For Daily Use) - PO 17 gm BID [facility]EE[facility]AY Administration Sitagliptin Phosphate 100 mg 09/30/18 07:00 09/30/18 06:35 Januvia - PO 100 mg ACBK DEEJAY Administration Microbiology 09/25/18 15:05 Blood - Peripheral Venous Blood Culture - Preliminary NO GROWTH OBTAINED AFTER 96 HOURS, INCUBATION TO CONTINUE FOR 1 DAYS. 09/25/18 14:50 Blood - Peripheral Venous Blood Culture - Preliminary NO GROWTH OBTAINED AFTER 96 HOURS, INCUBATION TO CONTINUE FOR 1 DAYS. 09/24/18 16:10 Urine - Urine Clean Catch Urine Culture - Final Escherichia Coli ASSESSMENT/PLAN: Sr Lorna Guillen is a 77 y/o female, admitted from the emergency department for possible abdominal abscess. 1) abdominal abscess - reviewed with IR, Dr Talbert, abscess are small unable to drain, repeat CT scan of abdomen and pelvis will repeat ct abd/pelvis with Iv/PO contrast no significant change, area of mesenteric edema noted with possible abscess formation within the left lower abdomen, right ovarian cysts 2.4 x 2.2 x 2.7 cm noted, questionable metastatic process, CEA 19 and CEA ordered, appreciate the input of general surgeon -ID following; Zosyn day #6; afebrile without any new white count. -Continue to monitor for fevers, monitor CBC. 2) Pancreatic Ductal Dilation (main duct) -Needs non-emergency MRCP once acute issues resolve; consider GI referral upon DC 3) IDDM - continue novolog SS and levermir, restart Januvia 4) HTN -Continue current meds; acceptable control 5) Acute Hyponatremia - serum sodium corrected in setting of hyperglycemia 136, close monitoring 6) E Coli + with suspect UA -Covered by zosyn empirically based on Sn on UA obtained on admit day -Monitor for resolution; no urinary sx. 7) HLD -Continue statin, followup OP Full Code Visit type - Emergency Visit Emergency Visit: Yes ED Registration Date: 09/24/18 Care time: The patient presented to the Emergency Department on the above date and was hospitalized for further evaluation of their emergent condition. - New Patient This patient is new to me today: No - Critical Care Critical Care patient: No - Discharge Referral Referred to [facility] No
--- NOTE | 2018-09-30 15:11 | CONSULT ---
- Consultation REQUESTING PROVIDER: Sade Romero WARD [employer]ID CONSULT REQUEST: We have been asked to surgically evaluate this patient for evaluation and management of abdomnal pain and abnormal imaging findings. Patient presented 1 week ago w/LLQ pain and saw here PCP who sent her to the ER ; CT scan of the a/p revealed a possible mesenteric abscess and edema; she has known mild diverticulosis on colonoscopy # years ago; she denies GI//[employer] c/o o /w; she has had no n/v; she is tolertaing a regular diet and moving her bowels. She is ; mammography is up to date. PCP:Sade Romero HISTORY OF PRESENT ILLNESS: PMHx: IDDM; hypertension; hyperlipidemia PSHx: shoulder and foot surgery Home Medications Medication Instructions Recorded Pravastatin Sodium [Pravachol -] 80 mg PO HS 05/22/13 metFORMIN HCL [Glucophage] 1,000 mg PO DAILY 05/22/13 Aspirin [ASA -] 81 mg PO DAILY #0 tab.chew 05/27/13 Levothyroxine [Synthroid -] 112 mcg PO DAILY@0700 #0 tablet 05/27/13 Losartan Potassium [Cozaar -] 100 mg PO DAILY 08/09/13 Amlodipine Besylate [Norvasc -] 5 mg PO DAILY 05/05/15 Insulin Detemir [Levemir Flextouch] 16 unit SQ DAILY #1 ml 11/24/16 Insulin Lispro [Humalog] 5 unit SQ TID 09/24/18 Metformin HCl [Metformin HCl ER] 500 mg PO DAILY 09/24/18 Propylene Glycol/Peg 400/Pf 1 each OU TID 09/26/18 [Systane 0.3-0.4% Eye Drops] Sitagliptin Phosphate [Januvia] 100 mg PO DAILY 09/26/18 Allergies Allergy/AdvReac Type Severity Reaction Status Date / Time No Known Allergies Allergy Verified 09/24/18 15:33 PHYSICAL EXAM: GENERAL: Awake, alert, and fully oriented, in no acute distress. HEAD: Normal with no signs of trauma. EYES: PERRL, sclera anicteric, conjunctiva clear. NECK: Normal ROM, supple without lymphadenopathy, JVD, or masses. ABDOMEN: Soft, nontender, not distended, normoactive bowel sounds, no guarding, no rebound, no masses. No organomegaly. No hernias. MUSCULOSKELETAL: Normal ROM at all joints. No bony deformities or tenderness. No CVA tenderness. UPPER EXTREMITIES: 2+ pulses, warm, well-perfused. No cyanosis. Cap refill <2 seconds. No peripheral edema. LOWER EXTREMITIES: 2+ pulses, warm, well-perfused. No calf tenderness. No peripheral edema. NEUROLOGICAL: Normal speech, gait not observed. PSYCH: Cooperative. Good eye contact. Appropriate mood and affect. SKIN: Warm, dry, normal turgor, no rashes or lesions noted. Vital Signs Temperature 97.5 F L 09/30/18 14:13 Pulse Rate 72 09/30/18 14:13 Respiratory Rate 16 09/30/18 14:13 Blood Pressure 117/50 L 09/30/18 14:13 O2 Sat by Pulse Oximetry (%) 100 09/30/18 14:13 Lab Results WBC 6.9 K/mm3 (4.0-10.8) 09/30/18 07:37 RBC 3.59 M/mm3 (3.60-5.2) L 09/30/18 07:37 Hgb 11.6 GM/dl (10.7-15.3) 09/30/18 07:37 Hct 33.5 % (32.4-45.2) 09/30/18 07:37 MCV 93.3 fl (80-96) 09/30/18 07:37 MCHC 34.7 g/dl (32.0-36.0) 09/30/18 07:37 RDW 11.5 % (11.6-15.6) L 09/30/18 07:37 Plt Count 266 K/MM3 (134-434) 09/30/18 07:37 Sodium 132 mmol/L (136-145) L 09/30/18 07:37 Potassium 4.4 mmol/L (3.5-5.1) 09/30/18 07:37 Chloride 101 mmol/L (98-107) 09/30/18 07:37 Carbon Dioxide 26 mmol/L (22-28) 09/30/18 07:37 Anion Gap 5 MMOL/L (8-16) L 09/30/18 07:37 BUN 11 mg/dl (7-18) 09/30/18 07:37 Creatinine 0.9 mg/dl (0.6-1.3) 09/30/18 07:37 Random Glucose 189 mg/dl (74-106) H D 09/30/18 07:37 Calcium 8.1 mg/dl (8.4-10.2) L 09/30/18 07:37 INR 1.08 (0.82-1.09) 09/26/18 07:00 Imaging w/u to date reviewed. IMP: ? mesenteric collection of ? origin and abnormalities of ovarie(s) and perinephric areas; no evidence of an acute surgical abdomen. PLAN: Suggest [employer] evaluation/tumor markers and continuing present plan w/ f/u outpatient imaging; origin of the radiological abnormalities remains obscure and requires f/u imaging. Holger Sexton MD FACS
[2018-09-30] MEDS: PIPERACILLIN/TAZOB 3.375 GM 3.375 GM in SODIUM CHLORIDE 50 ML IVPB SCH (17:38)
[2018-09-30] MEDS: ATORVASTATIN CA 20 MG TABLET (FP) PO SCH (21:50)
[2018-10-01] MEDS: PIPERACILLIN/TAZOB 3.375 GM 3.375 GM in SODIUM CHLORIDE 50 ML IVPB SCH ×2 (02:00→09:48)
[2018-10-01] MEDS: sitaGLIPtin PHOSPHATE 50 MG TABLET PO SCH (06:06)
[2018-10-01] MEDS: LEVOTHYROXINE NA 112 MCG TABLET (FP) PO SCH (06:06)
[2018-10-01] MEDS: DOCUSATE SODIUM 100 MG CAPSULE (FP) PO SCH (06:06)
[2018-10-01] MEDS: ARTIFICIAL TEARS (POLYVINYL ALCOHOL) OPTH DROPS OU SCH (06:07)
[2018-10-01] MEDS: INSULIN (NOVOLOG) ASPART 100 UNITS/ML 10ML VIAL SQ SCH ×2 (08:05→12:08)
[2018-10-01] MEDS: INSULIN (LEVEMIR) 100 UNITS/ML UNITS SQ SCH (08:12)
[2018-10-01] MEDS ORDERED: PT OWN MED DRAWER 7, Y5N ONE (09:40)
[2018-10-01] MEDS: ENOXAPARIN NA (PORCINE) 40 MG/0.4 ML DISP.SYRIN SQ SCH (09:46)
[2018-10-01] MEDS: LOSARTAN POTASSIUM 50 MG TABLET (FP) PO SCH (09:47)
[2018-10-01] MEDS: amLODIPine BESYLATE 5 MG TABLET (FP) PO SCH (09:47)
[2018-10-01] MEDS: POLYETHYLENE GLYCOL 3350 119 GM BTL PO SCH (09:47)
[2018-10-01] MEDS: ASPIRIN 81 MG CHEWABLE TABLETS PO SCH (09:47)
[2018-10-01] MEDS: LACTOBACILLUS ACIDOPHILUS 1 TABLET PO SCH (09:47)
[2018-10-01] MEDS: PANTOPRAZOLE 40 MG TABLET (FP) PO SCH (09:47)
--- NOTE | 2018-10-01 14:12 | DS ---
Physical Exam: SUBJECTIVE: Patient seen and examined, patient is ambulatory at bedside, steady gait is noted, she is tolerating regular diet, denies any tactile fever, denies any abdominal pain. ready for discharge home. OBJECTIVE: Sr Lorna Guillen is a 77 year-old female with a PMH significant for HTN, HLD, Type II diabetes insulin dependent, hypothyroidism, gastritis, and sigmoid diverticulosis. A week ago patient developed pain in the LLQ, nausea , and vomiting. The nausea and vomiting resolved the next day, but the LLQ pain persisted. The pain was not better or worse with food, but PO intake dropped due to discomfort. Yesterday patient went to see her PCP Dr. Conteh who referred patient to the ED. Patient denies fever, sweats, chills. Denies dysuria , frequency, urgency. Denies diarrhea. No history of abdominal surgeries. Vital Signs Period Temp Pulse Resp BP Sys/Bacon Pulse Ox Last 24 Hr 97.5 F-98.4 F 61-76 16-18 101-125/43-53 96-100 PHYSICAL EXAM GENERAL: The patient is awake, alert, and fully oriented, in no acute distress. HEAD: Normal with no signs of trauma. EYES: PERRL, extraocular movements intact, sclera anicteric, conjunctiva clear. ENT: Ears normal, nares patent, oropharynx clear without exudates, moist mucous membranes. NECK: Trachea midline, full range of motion, supple. LUNGS: Breath sounds equal, clear to auscultation bilaterally, no wheezes, no crackles, no accessory muscle use. HEART: Regular rate and rhythm, S1, S2 without murmur, rub or gallop. ABDOMEN: Soft, nontender, nondistended, normoactive bowel sounds, no guarding, no rebound, no hepatosplenomegaly, no masses. EXTREMITIES: 2+ pulses, warm, well-perfused, no edema. NEUROLOGICAL: Cranial nerves II through XII grossly intact. Normal speech, gait not observed. PSYCH: Normal mood, normal affect. SKIN: Warm, dry, normal turgor, no rashes or lesions noted. LABS Laboratory Results - last 24 hr 09/30/18 09/30/18 10/01/18 16:34 22:00 06:02 POC Glucometer 277 304 272 10/01/18 12:06 POC Glucometer 335 Microbiology 09/25/18 15:05 Blood - Peripheral Venous Blood Culture - Final NO GROWTH AFTER 5 DAYS INCUBATION 09/25/18 14:50 Blood - Peripheral Venous Blood Culture - Final NO GROWTH AFTER 5 DAYS INCUBATION 09/24/18 16:10 Urine - Urine Clean Catch Urine Culture - Final Escherichia Coli IMAGING -09/24 CTAP w/contrast: focal mesenteric edema within left paramedian aspect of lower abdomen/upper pelvis with a 3.3 x 2.3cm ring-enhancing fluid collection possible abscess -09/[address] abd/pelvis with Iv/PO contrast no significant change, area of mesenteric edema noted with possible abscess formation within the left lower abdomen, right ovarian cysts 2.4 x 2.2 x 2.7 cm noted, HOSPITAL COURSE: 1) abdominal abscess - reviewed with IR, Dr Talbert, reviewed repeat ct scan of abd/pelvis, abscess are small unable to drain, - CEA 19 and CEA are pending - consulted general surgeon Dr Sexton no surgical intervention at this time - case discussed with urologist, Dr Obrien, patient will require outpatient follow up -ID followed, Dr Enriquez, [place] day #7; afebrile without any new white count. 2) Pancreatic Ductal Dilation (main duct) -Needs non-emergency MRCP once acute issues resolve; r GI referral upon DC 3) IDDM - continue novolog SS and levermir, with home medication Januvia 4) HTN -Continue current meds; acceptable control 5) Acute Hyponatremia - serum sodium corrected in setting of hyperglycemia 136 6) E Coli + with suspect UA -Covered by zosyn empirically based on Sn on UA obtained on admit day - no urinary sx. 7) HLD -Continue statin, followup OP PLAN - discharge home with augumentin 875mg bid for 10 days - strict follow up with Dr Conteh (pcp) and urology within 1 week - follow up with Dr Hanna patient's private GI within 2 weeks - reviewed precautions reviewed with patient at length and patient's friend Sr Montes, both patient and Sr Montes verbalize understanding Date of Admission:09/24/18 Date of Discharge: 10/01/18 , josé Minutes to complete discharge: 45 Discharge Summary Reason For Visit: DIARRHEA/SM BOWEL ABSCESS Current Active Problems Diabetes (Acute) Diarrhea (Acute) Intra-abdominal abscess (Acute) Small bowel edema (Acute) Condition: Stable - Instructions Diet, Activity, Other Instructions: You were admitted to the hospital for the intra-abdominal abscess and a urinary tract infection You were treated with IV antibiotics during your admission in the hospital Please continue Augmentin (antibiotic) daily as prescribed Please follow-up with your primary care physician within one week. Please follow -up with the urologist within one week If any new or persistent symptoms develop please return to the emergency department Referrals: Kye Conteh MD [Primary Care Provider] - 1 Week Jose Hanna MD [Staff Physician] - 2 Weeks Reno Pearson MD [Staff Physician] - 1 Week Disposition: HOME - Home Medications Comprehensive Discharge Medication List: Ambulatory Orders Pravastatin Sodium [Pravachol -] 80 mg PO HS 05/22/13 metFORMIN HCL [Glucophage] 1,000 mg PO DAILY 05/22/13 Aspirin [ASA -] 81 mg PO DAILY #0 tab.chew 05/27/13 Levothyroxine [Synthroid -] 112 mcg PO DAILY@0700 #0 tablet 05/27/13 Losartan Potassium [Cozaar -] 100 mg PO DAILY 08/09/13 Amlodipine Besylate [Norvasc -] 5 mg PO DAILY 05/05/15 Insulin Detemir [Levemir Flextouch] 16 unit SQ DAILY #1 ml 11/24/16 Insulin Lispro [Humalog] 5 unit SQ TID 09/24/18 Metformin HCl [Metformin HCl ER] 500 mg PO DAILY 09/24/18 Propylene Glycol/Peg 400/Pf [Systane 0.3-0.4% Eye Drops] 1 each OU TID 09/26/18 Sitagliptin Phosphate [Januvia] 100 mg PO DAILY 09/26/18 This patient is new to me today: No Emergency Visit: Yes ED Registration Date: 09/24/18 Care time: The patient presented to the Emergency Department on the above date and was hospitalized for further evaluation of their emergent condition. Critical Care patient: No - Discharge Referral Referred to [facility] Med [facility].: No
[2018-10-01 14:22] VITALS: BP 124/55; PULSE 58; TEMP 97.5
== END 2018-10-01 14:48 | disposition home or self-care (01) | DRG 393 ==
LOC: FER 15:31 → FM/S 17:35 → UNDOADMOB 17:35 → FM/S 21:02
PROVIDERS: ADMIT Internal Medicine; ATTEND Nurse Practitioner Family
DX: I88.0 Nonspecific mesenteric lymphadenitis (principal); K65.1 Peritoneal abscess; E87.1 Hypo-osmolality and hyponatremia; E03.9 Hypothyroidism, unspecified; E11.9 Type 2 diabetes mellitus without complications; I10 Essential (primary) hypertension; E78.5 Hyperlipidemia, unspecified; Z79.84 Long term (current) use of oral hypoglycemic drugs; Z79.4 Long term (current) use of insulin; R19.7 Diarrhea, unspecified; K86.89 Other specified diseases of pancreas; K29.70 Gastritis, unspecified, without bleeding; K57.30 Diverticulosis of large intestine without perforation or abscess without bleeding; B96.29 Other Escherichia coli [E. coli] as the cause of diseases classified elsewhere; N83.201 Unspecified ovarian cyst, right side
CPT/HCPCS: 36415; 74177-TC; 80048; 80053; 81003; 81015; 82378; 82962; 83605; 83690; 83735; 83930; 83935; 84100; 84300; 84443; 85025; 85610; 85651; 85730; 86140; 86301; 87040; 87086; 87186; 97116-GP; 97161-GP; 99284-25; J7030

== ENCOUNTER 2018-10-07 12:00 | Emergency (ER) | payer OTHER ==
[2018-10-07 12:14] VITALS: TEMP 97.7; BMI 23.6
--- NOTE | 2018-10-07 12:55 | PDOC ---
History of Present Illness - General Chief Complaint: Abscess Boil Stated Complaint: ABSCESS BOIL Time Seen by Provider: 10/07/18 12:55 Past History - Past Medical History Allergies/Adverse Reactions: Allergies Allergy/AdvReac Type Severity Reaction Status Date / Time No Known Allergies Allergy Verified 10/07/18 12:14 Home Medications: Ambulatory Orders Pravastatin Sodium [Pravachol -] 80 mg PO HS 05/22/13 metFORMIN HCL [Glucophage] 1,000 mg PO DAILY 05/22/13 Aspirin [ASA -] 81 mg PO DAILY #0 tab.chew 05/27/13 Levothyroxine [Synthroid -] 112 mcg PO DAILY@0700 #0 tablet 05/27/13 Losartan Potassium [Cozaar -] 100 mg PO DAILY 08/09/13 Amlodipine Besylate [Norvasc -] 5 mg PO DAILY 05/05/15 Insulin Detemir [Levemir Flextouch] 16 unit SQ DAILY #1 ml 11/24/16 Insulin Lispro [Humalog] 5 unit SQ TID 09/24/18 Metformin HCl [Metformin HCl ER] 500 mg PO DAILY 09/24/18 Propylene Glycol/Peg 400/Pf [Systane 0.3-0.4% Eye Drop] 1 each OU TID 09/26/18 Sitagliptin Phosphate [Januvia] 100 mg PO DAILY 09/26/18 Amoxicillin/Potassium Clav [Augmentin 875-125 Tablet] 1 each PO BID #20 tablet 10/01/18 Docusate Sodium [Colace -] 100 mg PO TID #90 capsule 10/01/18 Lactobacillus Acidophilus [Bacid -] 1 tab PO DAILY #30 tab 10/01/18 Melatonin 5 mg PO HS PRN #30 tab 10/01/18 Polyethylene Glycol 3350 [Miralax 119 gm Btl -] 17 gm PO BID #1 bottle 10/01/18 Anemia: No Asthma: No Cancer: No Cardiac Disorders: No CVA: No COPD: No CHF: No Dementia: No Diabetes: Yes GI Disorders: Yes (BLOOD IN STOOL) Disorders: No HTN: Yes Hypercholesterolemia: Yes Liver Disease: No Seizures: No Thyroid Disease: Yes - Surgical History Abdominal Surgery: No Appendectomy: No Cardiac Surgery: No Cholecystectomy: No Neurologic Surgery: Yes (GROWTH REMOVED FROM BRAIN 1994) Orthopedic Surgery: Yes (L. Foot, L. Knee replaced) - Suicide/Smoking/Psychosocial Hx Smoking Status: No Smoking History: Never smoked Have you smoked in the past 12 months: No Number of Cigarettes Smoked Daily: 0 Hx Alcohol Use: No Drug/Substance Use Hx: No Substance Use Type: None Hx Substance Use Treatment: No *Physical Exam - Vital Signs Last Vital Signs Temp Pulse Resp BP Pulse Ox 97.7 F 64 18 148/66 99 10/07/18 12:12 10/07/18 12:12 10/07/18 12:12 10/07/18 12:12 10/07/18 12:12 ED Treatment Course - LABORATORY CBC & Chemistry Diagram: 10/07/18 14:10 10/07/18 14:10 *DC/Admit/Observation/Transfer Diagnosis at time of Disposition: Intra-abdominal abscess - Discharge Dispostion Disposition: HOME Condition at time of disposition: Stable Decision to Admit order: No - Referrals Referrals: Kye Conteh MD [Primary Care Provider] - - Patient Instructions Printed Discharge Instructions: DI for Intra-Abdominal Abscess Additional Instructions: Your lab and imaging results showed your abdominal abscess has slightly improved. Continue taking the Augmentin as previously prescribed. Follow up with your primary care physician as previously scheduled or after finishing your antibiotics. You will need to call to make an appointment. Take your home medications as instructed. No change was made in your medications today. Return if worsening symptoms including fevers, headache, vomiting, visual or hearing disturbances, abdominal pain, chest pain, shortness of breath, pass out , dehydration, inability to take things by mouth, altered mental status, or worsening concerning symptoms. Go to the nearest emergency department if your condition worsens or you feel like you need additional emergency evaluation. Print Language: KOREAN - Post Discharge Activity
[2018-10-07] MEDS ORDERED: SODIUM CHLORIDE 0.9% 500 ML INFUS.BAG IV ONE (14:18)
[2018-10-07 14:40] LABS: BASO % 1.2 % (0-2.0); EOS % 1.4 % (0-4.5); HEMATOCRIT 39.7 % (32.4-45.2); HEMOGLOBIN 13.7 GM/dL (10.7-15.3); LYMPH % 16.6 % (8-40); MCH 31.2 pg (25.7-33.7); MCHC 34.5 g/dl (32.0-36.0); MEAN CELL VOLUME 90.6 fl (80-96); MEAN PLT VOLUME 8.6 fl (7.5-11.1); MONO % 11.6 % (3.8-10.2); NEUT % 69.2 % (42.8-82.8); PLATELET COUNT 314 K/MM3 (134-434); RBC 4.38 M/mm3 (3.60-5.2); RDW 12.9 % (11.6-15.6); WHITE BLOOD COUNT 7.2 K/mm3 (4.0-10.0)
[2018-10-07 15:31] LABS: ALBUMIN 3.6 g/dl (3.4-5.0); ALK PHOS 118 U/L (45-117); ANION GAP 9 MMOL/L (8-16); BILIRUBIN,TOTAL 0.3 mg/dL (0.2-1); BLOOD UREA NITROGEN 12 mg/dL (7-18); CALCIUM 9.4 mg/dL (8.5-10.1); CHLORIDE 97 mmol/L (98-107); CO2 28 mmol/L (21-32); CREATININE 0.8 mg/dL (0.55-1.3); GLUCOSE,RANDOM 208 mg/dL (74-106); POTASSIUM 4.7 mmol/L (3.5-5.1); SGOT/AST 19 U/L (15-37); SGPT/ALT 25 U/L (13-61); SODIUM 133 mmol/L (136-145); TOT PROT 7.3 g/dl (6.4-8.2)
[2018-10-07 20:01] VITALS: BP 131/58; PULSE 80
== END 2018-10-08 06:54 | disposition home or self-care (01) ==
LOC: JER 12:00
DX: K65.1 Peritoneal abscess (principal); I10 Essential (primary) hypertension; E78.00 Pure hypercholesterolemia, unspecified; E11.9 Type 2 diabetes mellitus without complications; Z79.4 Long term (current) use of insulin; Z79.84 Long term (current) use of oral hypoglycemic drugs; E03.9 Hypothyroidism, unspecified
CPT/HCPCS: 36415; 74177-TC; 80053; 85025; 99281-25

== ENCOUNTER 2021-09-15 12:54 | Inpatient (IN) | payer OTHER ==
[2021-09-15] MEDS ORDERED: ACETAMINOPHEN 500 MG TABLET (FP) PO ONE (13:56)
[2021-09-15] MEDS ORDERED: ACETAMINOPHEN 325 MG TABLET (FP) ONE (14:21)
[2021-09-15 17:02] LABS: BASO % 0.3 % (0-2.0); EOS % 0.3 % (0-4.5); HEMATOCRIT 39.6 % (32.4-45.2); HEMOGLOBIN 13.6 GM/dL (10.7-15.3); INR 0.96 (0.83-1.09); LYMPH % 5.7 % (8-40); MCH 30.9 pg (25.7-33.7); MCHC 34.3 g/dl (32.0-36.0); MEAN PLT VOLUME 8.6 fl (7.5-11.1); MONO % 7.1 % (3.8-10.2); NEUT % 86.6 % (42.8-82.8); PLATELET COUNT 164 10^3/uL (134-434); PROTHROMBIN TIME (PATIENT) 11.2 SEC (9.7-13.0); RDW 12.5 % (11.6-15.6); WHITE BLOOD COUNT 14.5 K/mm3 (4.0-10.0)
[2021-09-15 17:05] LABS: ACTIVATED PTT 27.4 SECONDS (25.2-36.5)
[2021-09-15 17:11] LABS: CALCIUM 9.3 mg/dL (8.5-10.1)
[2021-09-15 17:12] LABS: ALBUMIN 3.5 g/dl (3.4-5.0); BLOOD UREA NITROGEN 19.6 mg/dL (7-18)
[2021-09-15 17:15] LABS: CREATININE 0.8 mg/dL (0.55-1.3)
[2021-09-15 17:16] LABS: BILIRUBIN,TOTAL 0.4 mg/dL (0.2-1)
[2021-09-15 17:17] LABS: TOT PROT 6.7 g/dl (6.4-8.2)
[2021-09-15] MEDS ORDERED: MELATONIN 5 MG TABLETS PO PRN (19:09)
[2021-09-15 19:14] LABS: EPI CELLS 0 /uL (0-25.1); HYALINE CASTS 2 /uL (0-3.1); PH,URINE 6.5 (5.0-8.0); URINE APPEARANCE CLEAR; URINE BACTERIA 7224 /uL (0-1359); URINE BILIRUBIN NEGATIVE (NEGATIVE); URINE COLOR DK YELLOW; URINE GLUCOSE (UA) NEGATIVE (NEGATIVE); URINE KETONE TRACE (NEGATIVE); URINE LEUK ESTERASE TRACE (NEGATIVE); URINE NITRITE NEGATIVE (NEGATIVE); URINE PROTEIN 2+ (NEGATIVE); URINE RBC 4 /uL (0-23.9); URINE UROBILINOGEN 0.2 mg/dL (0.2-1.0); URINE WBC 162 /uL (0-25.8)
[2021-09-15] MEDS: CEFTRIAXONE 1 GM in DEXTROSE 5%-WATER - 50 ML IVPB SCH (21:21)
[2021-09-15] MEDS ORDERED: CEFTRIAXONE 1 GM/50 ML BAG ONE (21:28)
[2021-09-15] MEDS: ACETAMINOPHEN 1000 MG/100 ML VIAL IVPB PRN (21:32)
[2021-09-15] MEDS ORDERED: ACETAMINOPHEN INJECTION 100 ML IVPB ONE (21:33)
[2021-09-15] MEDS: DOCUSATE SODIUM 100 MG CAPSULE (FP) PO SCH (22:54)
[2021-09-15] MEDS: ATORVASTATIN CA 20 MG TABLET (FP) PO SCH (22:55)
[2021-09-15] MEDS: HEPARIN NA (PORCINE) 5,000 UNITS/ML 1ML VIAL SQ SCH (22:55)
[2021-09-15 23:59] VITALS: BMI 23.6
[2021-09-16] MEDS: ACETAMINOPHEN 1000 MG/100 ML VIAL IVPB PRN (06:29)
[2021-09-16] MEDS: INSULIN SLIDING SCALE (NOVOLOG) 1 VIAL SQ SCH ×3 (06:33→16:53)
[2021-09-16] MEDS: DOCUSATE SODIUM 100 MG CAPSULE (FP) PO SCH ×4 (06:38→21:50)
[2021-09-16] MEDS: LEVOTHYROXINE NA 112 MCG TABLET (FP) PO SCH (06:44)
[2021-09-16 08:57] LABS: BASO % 0.2 % (0-2.0); EOS % 0.2 % (0-4.5); HEMATOCRIT 36.5 % (32.4-45.2); HEMOGLOBIN 12.5 GM/dL (10.7-15.3); LYMPH % 4.7 % (8-40); MCH 30.7 pg (25.7-33.7); MCHC 34.1 g/dl (32.0-36.0); MEAN CELL VOLUME 90.2 fl (80-96); MONO % 4.9 % (3.8-10.2); PLATELET COUNT 145 10^3/uL (134-434); RBC 4.05 M/mm3 (3.60-5.2); RDW 12.4 % (11.6-15.6)
[2021-09-16 09:08] LABS: CALCIUM 9.2 mg/dL (8.5-10.1)
[2021-09-16 09:09] LABS: ALBUMIN 3.1 g/dl (3.4-5.0); BLOOD UREA NITROGEN 22.6 mg/dL (7-18)
[2021-09-16 09:12] LABS: CREATININE 0.9 mg/dL (0.55-1.3)
[2021-09-16 09:14] LABS: BILIRUBIN,TOTAL 0.6 mg/dL (0.2-1); TOT PROT 6.1 g/dl (6.4-8.2)
[2021-09-16] MEDS ORDERED: cefTRIAXone SODIUM 1 GM VIAL ONE (09:47)
[2021-09-16] MEDS ORDERED: DEXTROSE 5%-WATER - 50 ML IVPB ONE (09:47)
[2021-09-16] MEDS: INSULIN (LEVEMIR) 100 UNITS/ML UNITS SQ SCH ×2 (09:48→21:50)
[2021-09-16] MEDS: CEFTRIAXONE 1 GM in DEXTROSE 5%-WATER - 50 ML IVPB SCH (09:49)
[2021-09-16] MEDS: amLODIPine BESYLATE 5 MG TABLET (FP) PO SCH (09:49)
[2021-09-16] MEDS: HEPARIN NA (PORCINE) 5,000 UNITS/ML 1ML VIAL SQ SCH ×2 (09:49→21:50)
[2021-09-16] MEDS ORDERED: amLODIPine BESYLATE 5 MG TABLET (FP) PO SCH (10:00)
[2021-09-16] MEDS: ATORVASTATIN CA 20 MG TABLET (FP) PO SCH (21:50)
[2021-09-16] MEDS ORDERED: ACETAMINOPHEN 500 MG TABLET (FP) PO ONE (22:33)
[2021-09-16] MEDS: LOSARTAN 50MG/HCTZ 12.5MG 1 TAB PO SCH (23:03)
[2021-09-17] MEDS: DOCUSATE SODIUM 100 MG CAPSULE (FP) PO SCH ×3 (06:29→21:33)
[2021-09-17] MEDS: LEVOTHYROXINE NA 112 MCG TABLET (FP) PO SCH (06:30)
[2021-09-17] MEDS: INSULIN (LEVEMIR) 100 UNITS/ML UNITS SQ SCH ×2 (06:30→21:33)
[2021-09-17] MEDS: INSULIN SLIDING SCALE (NOVOLOG) 1 VIAL SQ SCH ×3 (06:32→17:04)
[2021-09-17 08:39] LABS: BASO % 0.5 % (0-2.0); EOS % 1.6 % (0-4.5); HEMATOCRIT 34.6 % (32.4-45.2); HEMOGLOBIN 11.9 GM/dL (10.7-15.3); LYMPH % 10.7 % (8-40); MCH 31.5 pg (25.7-33.7); MCHC 34.5 g/dl (32.0-36.0); MEAN CELL VOLUME 91.3 fl (80-96); MONO % 8.4 % (3.8-10.2); NEUT % 78.8 % (42.8-82.8); PLATELET COUNT 139 10^3/uL (134-434); RBC 3.78 M/mm3 (3.60-5.2); RDW 12.6 % (11.6-15.6); WHITE BLOOD COUNT 8.9 K/mm3 (4.0-10.0)
[2021-09-17 09:02] LABS: ALBUMIN 2.6 g/dl (3.4-5.0); CALCIUM 8.6 mg/dL (8.5-10.1)
[2021-09-17 09:03] LABS: MAGNESIUM 1.8 mg/dL (1.8-2.4)
[2021-09-17 09:06] LABS: PHOSPHOROUS 2.9 mg/dL (2.5-4.9)
[2021-09-17 09:07] LABS: BILIRUBIN,TOTAL 0.6 mg/dL (0.2-1)
[2021-09-17] MEDS ORDERED: DEXTROSE 5%-WATER - 50 ML IVPB ONE (10:01)
[2021-09-17] MEDS ORDERED: cefTRIAXone SODIUM 1 GM VIAL ONE (10:01)
[2021-09-17] MEDS ORDERED: PT OWN MED DRAWER 7, Y5N ONE ×2 (10:01→21:32)
[2021-09-17] MEDS: CEFTRIAXONE 1 GM in DEXTROSE 5%-WATER - 50 ML IVPB SCH (10:05)
[2021-09-17] MEDS: HEPARIN NA (PORCINE) 5,000 UNITS/ML 1ML VIAL SQ SCH ×2 (10:06→21:33)
[2021-09-17] MEDS: amLODIPine BESYLATE 5 MG TABLET (FP) PO SCH (10:06)
[2021-09-17] MEDS: LOSARTAN 50MG/HCTZ 12.5MG 1 TAB PO SCH ×2 (10:10→21:33)
[2021-09-17] MEDS: ACETAMINOPHEN 1000 MG/100 ML VIAL IVPB PRN ×2 (11:39→17:55)
[2021-09-17] MEDS: ATORVASTATIN CA 20 MG TABLET (FP) PO SCH (21:33)
[2021-09-18] MEDS: ACETAMINOPHEN 1000 MG/100 ML VIAL IVPB PRN ×2 (03:25→09:43)
[2021-09-18] MEDS: INSULIN SLIDING SCALE (NOVOLOG) 1 VIAL SQ SCH ×3 (06:09→16:32)
[2021-09-18] MEDS: DOCUSATE SODIUM 100 MG CAPSULE (FP) PO SCH ×2 (06:09→14:04)
[2021-09-18] MEDS: LEVOTHYROXINE NA 112 MCG TABLET (FP) PO SCH (06:09)
[2021-09-18] MEDS: INSULIN (LEVEMIR) 100 UNITS/ML UNITS SQ SCH (06:10)
[2021-09-18] MEDS ORDERED: DEXTROSE 5%-WATER - 50 ML IVPB ONE (09:40)
[2021-09-18] MEDS ORDERED: cefTRIAXone SODIUM 1 GM VIAL ONE (09:40)
[2021-09-18] MEDS ORDERED: PT OWN MED DRAWER 7, Y5N ONE (09:41)
[2021-09-18] MEDS: amLODIPine BESYLATE 5 MG TABLET (FP) PO SCH (09:46)
[2021-09-18] MEDS: LOSARTAN 50MG/HCTZ 12.5MG 1 TAB PO SCH (09:47)
[2021-09-18] MEDS: HEPARIN NA (PORCINE) 5,000 UNITS/ML 1ML VIAL SQ SCH (09:48)
[2021-09-18] MEDS: CEFTRIAXONE 1 GM in DEXTROSE 5%-WATER - 50 ML IVPB SCH (09:50)
[2021-09-18 19:45] VITALS: BP 134/67; PULSE 77; TEMP 98
== END 2021-09-18 19:49 | DRG 536 ==
LOC: JER 12:54 → JERBED 15:44 → J6S 22:39
PROVIDERS: ADMIT Internal Medicine
DX: S32.512A Fracture of superior rim of left pubis, initial encounter for closed fracture (principal); N39.0 Urinary tract infection, site not specified; S32.592A Other specified fracture of left pubis, initial encounter for closed fracture; E03.9 Hypothyroidism, unspecified; I10 Essential (primary) hypertension; E78.5 Hyperlipidemia, unspecified; G47.00 Insomnia, unspecified; B96.20 Unspecified Escherichia coli [E. coli] as the cause of diseases classified elsewhere; E11.9 Type 2 diabetes mellitus without complications; R91.1 Solitary pulmonary nodule; W19.XXXA Unspecified fall, initial encounter; Y93.9 Activity, unspecified; Y92.89 Other specified places as the place of occurrence of the external cause; Y99.9 Unspecified external cause status
CPT/HCPCS: 36415; 70450-TC; 71045-TC-FY; 72125-TC; 72192-TC; 73523-TC-FY; 73552-TC-LT-FY; 80053; 81003; 82962; 83735; 84100; 84443; 85025; 85610; 85730; 86850; 86900; 86901; 87086; 87186; 93005; 93010; 97116-GP; 97162-GP; 99285-25; C9803; J0131; J1644; U0003; U0005